=== PATIENT | female | born 1985 | race Caucasian/White ===

== ENCOUNTER 2017-02-21 17:03 | Emergency (ER) | payer MEDICAID, OTHER ==
[~2017-02-21] VITALS: Ht 152.4 cm; Wt 66.0 kg
[2017-02-21 17:05] VITALS: BP 150/88; PULSE 84; RESP 16; TEMP 97.7; O2SAT 99
--- NOTE | 2017-02-21 17:08 | PD ---
Physical Exam Date Seen by Provider: Feb 21, 2017 Time Seen by Provider: 17:06 Data Data Last Documented VS Vital Signs Date Time Temp Pulse Resp B/P Pulse Ox O2 Delivery O2 Flow Rate FiO2 02/21/17 17:05 97.7 84 16 150/88 99 Room Air [facility] Supervised Visit with NUNU: No Narrative Course 31 YO F with complaint of 1 day history of 7/10 abdominal pain and vaginal bleeding during . LMP December. Vitals reviewed. Awaiting bed placement. Isabel Quevedo Feb 21, 2017 17:08
--- NOTE | 2017-02-21 17:32 | PD ---
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 She reports that her last menstrual period was December 17. She took a home test about a month ago and was positive. 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 She reports that she had some pelvic cramping yesterday which is more mild. She reports that for the past 30 minutes she has been having some vaginal bleeding, worsening pelvic cramping which prompted evaluation. No alleviating factors. Or abrasions occasional nausea. Endorses dark colored urine. Denies dysuria, increased urine frequency or hesitancy, flank pain, fevers or chills. She does not know her Rh type. No other complaints. PFSH Past Medical History ?: LMP: December Social History Alcohol Use: No Tobacco Use: Yes Allergies-Medications (Allergen,Severity, Reaction): Coded Allergies: No Known Allergies (Unverified , 02/21/17) Reported Meds & Prescriptions Reported Meds & Active Scripts Active Macrobid (Nitrofurantoin Monohydrate Macrocrystals) 100 Mg Capsule 100 Mg PO BID 7 Days Review of Systems Except as stated in HPI: all other systems reviewed are Neg Physical Exam Narrative GENERAL: Well-developed well-nourished female in no acute distress SKIN: Warm and dry. HEAD: Atraumatic. Normocephalic. EYES: Pupils equal and round. No scleral icterus. No injection or drainage. ENT: No nasal bleeding or discharge. Mucous membranes pink and moist. NECK: Trachea midline. No JVD. CARDIOVASCULAR: Regular rate and rhythm. No murmur appreciated. RESPIRATORY: No accessory muscle use. Clear to auscultation. Breath sounds equal bilaterally. GASTROINTESTINAL: Abdomen soft, non-tender, nondistended. Hepatic and splenic margins not palpable. Pelvic examination performed in the presence of a female nurse: There is some blood noted in the vaginal canal. There is no cervical motion tenderness or adnexal tenderness. There is mild suprapubic tenderness to palpation without guarding. No palpable masses. Normal external genitalia. MUSCULOSKELETAL: No obvious deformities. No clubbing. No cyanosis. No edema. NEUROLOGICAL: Awake and alert. No obvious cranial nerve deficits. Motor grossly within normal limits. Normal speech. PSYCHIATRIC: Appropriate mood and affect; insight and judgment normal. Data Data Last Documented VS Vital Signs Date Time Temp Pulse Resp B/P Pulse Ox O2 Delivery O2 Flow Rate FiO2 02/21/17 17:05 97.7 84 16 150/88 99 Room Air Orders Beta Hcg (Quant/Titer) (02/21/17 17:25) Urinalysis - C+S If Indicated (02/21/17 17:25) Iv Access Insert/Monitor (02/21/17 17:25) Ed Urine Pregnancytest Poc (02/21/17 17:25) Gc And Chlamydia Pcr (02/21/17 18:10) Wet Prep Profile (02/21/17 18:10) Urine Culture (02/21/17 18:45) Nitrofurantoin Monohyd Macrocr (Macrobid (02/21/17 18:45) Labs Laboratory Tests Test 02/21/17 02/21/17 02/21/17 17:28 17:37 18:19 Urine Color YELLOW Urine Turbidity HAZY Urine pH 6.0 Urine Specific [place] 1.028 Urine Protein 30 mg/dL Urine Glucose (UA) NEG mg/dL Urine Ketones 10 mg/dL Urine Occult Blood MOD Urine Nitrite POS Urine Bilirubin NEG Urine Urobilinogen LESS THAN 2.0 MG/DL Urine Leukocyte Esterase MOD Human Chorionic Gonadotropin, LESS THAN 1 Quant MIU/ML Clue Cells (Wet Prep) NONE SEEN Vaginal Trichomonas (Wet Prep) NONE SEEN Vaginal Yeast (Wet Prep) NONE SEEN MDM Medical Decision Making Medical Screen Exam Complete: Yes Emergency Medical Condition: Yes Medical Record Reviewed: Yes Differential Diagnosis Threatened , complete , menstruation, cystitis, pelvic inflammatory disease, cervicitis Narrative Course 31-year-old female who believes that her last menstrual period was December 17, reportedly a positive home test sometime last month, presents now with less than 1 hour of mild pelvic cramping and vaginal bleeding. She has noted some dark colored urination as well. Physical examination reveals some blood in the vaginal canal, mild superpubic discomfort with palpation. There is no cervical motion tenderness or adnexal tenderness, no palpable masses. 2 urine tests were performed and they were both negative. Therefore quantitative beta hCG was sent and this is less than 1. The patient is not . She is likely experiencing menstruation. Urinalysis however reveals positive nitrites, 20-24 wbc's, many bacteria, therefore urine culture has been ordered and the patient will be discharged on Macrobid. Diagnosis Primary Impression: Late menstruation Additional Impression: Cystitis Additional Instructions: Antibiotic as prescribed. Follow-up with primary care physician as needed. Return for any acutely new or worsening symptoms. Med/Other Pt SpecificInfo: Prescription(s) given Scripts Nitrofurantoin Monohydrate Macrocrystals (Macrobid)100 Mg [id number] Mg PO BID 7 Days Ref 0 Prov:Shruti Lloyd MD 02/21/17 Disposition: 01 DISCHARGE HOME Condition: Stable Wilner Zuniga Feb 21, 2017 17:32
[2017-02-21 18:28] LABS: BLOOD, URINE MOD (NEG); GLUCOSE,URINE NEG (NEG); KETONE, URINE 10 mg/dL (NEG); URINE COLOR YELLOW (YELLW/STRAW)
[2017-02-21 18:33] LABS: BETA HCG QUANT LESS THAN 1 MIU/ML (0-5)
[2017-02-21 18:34] LABS: NITRITE,URINE POS (NEG)
[2017-02-21] MEDS ORDERED: NITROFURANTOIN MONOHYD MACROCR 100 MG CAP PO ONE (18:45)
[2017-02-21] MEDS ORDERED: MACR100C2 PO (18:46)
[2017-02-21 18:49] LABS: BACTERIA, URINE MANY /hpf; CULTURE IF INDICATED CULTURE INDICATED; SQUAMOUS EPITHELIAL CELL URINE > 8 /hpf (0-5)
[2017-02-21 18:55] LABS: COMMENT (UR) CULTURE INDICATED; COMMENT2 (UR) CULTURE INDICATED
[2017-02-21 19:31] VITALS: BP 142/87
[2017-02-21 21:10] LABS: CHLAMYDIA PCR NOT DETECTED (NOT DETECT); NEISSERIA PCR NOT DETECTED (NOT DETECT)
== END 2017-02-21 19:36 | disposition home or self-care (01) ==
LOC: NEPD 17:03
DX: R10.2 Pelvic and perineal pain (principal); N30.90 Cystitis, unspecified without hematuria; B96.20 Unspecified Escherichia coli [E. coli] as the cause of diseases classified elsewhere; Z87.891 Personal history of nicotine dependence
CPT/HCPCS: 81001; 84702; 84703; 87077; 87086; 87186; 87210; 87491; 87591; 99284

== ENCOUNTER 2017-08-30 20:27 | Emergency (ER) | payer MEDICAID ==
[~2017-08-30 20:27] MED LIST: MACR100C2 PO
[2017-08-30 20:28] VITALS: BP 156/124; PULSE 85; RESP 16; TEMP 99.2; O2SAT 97
[2017-08-30 21:05] LABS: AUTOMATED NEUTROPHIL # 6.5 TH/MM3 (1.8-7.7); BASOPHIL # 0.1 TH/MM3 (0-0.2); BASOPHIL % 0.7 % (0.0-2.0); EOSINOPHIL # 0.2 TH/MM3 (0-0.4); EOSINOPHIL % 1.8 % (0.0-4.0); HEMATOCRIT 38.8 % (35.0-46.0); HEMO FLAGS DIFF FINAL; LYMPHOCYTE # 2.4 TH/MM3 (1.0-4.8); MEAN CELL VOLUME 90.2 FL (80.0-100.0); MEAN CORPUSCULAR HGB CONC 34.4 % (32.0-36.0); MONO % 4.3 % (0.0-8.0); NEUT % 68.2 % (16.0-70.0); PLATELET COUNT 154 TH/MM3 (150-450); RED CELL DISTRIBUTION WIDTH 13.2 % (11.6-17.2); WHITE BLOOD COUNT 9.5 TH/MM3 (4.0-11.0)
[2017-08-30 21:13] LABS: BLOOD, URINE LARGE (NEG); COMMENT (UR) CULT NOT INDICATED; CULTURE IF INDICATED CULT NOT INDICATED; GLUCOSE,URINE NEG (NEG); KETONE, URINE NEG (NEG); MUCUS URINE MOD /lpf (OCC); NITRITE,URINE NEG (NEG); SQUAMOUS EPITHELIAL CELL URINE 9 /hpf (0-5); URINE COLOR YELLOW (YELLW/STRAW)
[2017-08-30 21:23] LABS: ANION GAP 6 MEQ/L (5-15); AST (GOT) 9 U/L (15-37); BICARBONATE 28.2 MEQ/L (21.0-32.0); BLOOD UREA NITROGEN 19 MG/DL (7-18); CHLORIDE 104 MEQ/L (98-107); GLOMERULAR FILTRATION RATE 90 ML/MIN (>89); POTASSIUM 3.6 MEQ/L (3.5-5.1); SODIUM (NA) 138 MEQ/L (136-145)
[2017-08-30 21:24] LABS: ALT (GPT) 17 U/L (10-53)
[2017-08-30 21:26] LABS: ALKALINE PHOSPHATASE 54 U/L (45-117); TOTAL BILIRUBIN ADULT 0.3 MG/DL (0.2-1.0)
[2017-08-30] MEDS ORDERED: SODIUM CHLOR 0.9% 1000 ML INJ 1,000 ML IV ONE (21:48)
--- NOTE | 2017-08-30 22:03 | PD ---
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 She reports that the bleeding seems to come and go and worsens with activity or urination. The patient reports that she has had associated urinary frequency, however no dysuria or urinary urgency. She reports that she did not have her menstrual cycle in July. She has not taken a test. She reports that she is a . Her OB history is significant for having 1 miscarriage, 1 due to hypertension in , and 2 vaginal deliveries. The patient reports that she's had increased pain in the left lower quadrant of the abdomen with this vaginal bleeding. On review of systems, the patient denies having any known fevers, cough, congestion, neck pain, chest pain, shortness of breath, vomiting, diarrhea, or neurologic symptoms. [facility] Past Medical History Narrative Medical The patient's past medical history is significant for depression. Tetanus Vaccination: Unknown Influenza Vaccination: No ?: LMP: june one : 4 Para: 3 Miscarriage: 1 Past Surgical History Narrative Surgical The patient's past surgical history is significant for one and a tonsillectomy Section: Yes Tonsillectomy: Yes Social History Alcohol Use: No Tobacco Use: Yes Substance Use: Yes (marijuana occasional ) Allergies-Medications (Allergen,Severity, Reaction): Coded Allergies: No Known Allergies (Unverified , 02/21/17) Reported Meds & Prescriptions Reported Meds & Active Scripts Active Clindamycin (Clindamycin HCl) 300 Mg Cap 300 Mg PO BID 7 Days Macrobid (Nitrofurantoin Monohydrate Macrocrystals) 100 Mg Capsule 100 Mg PO BID 7 Days Review of Systems Except as stated in HPI: all other systems reviewed are Neg General / Constitutional: No: Fever Eyes: No: Visual changes HENT: No: Headaches Cardiovascular: No: Chest Pain or Discomfort Respiratory: No: Shortness of Breath Gastrointestinal: Positive: Abdominal Pain, No: Nausea, Vomiting, Diarrhea, Changes in Bowel Habits, Indigestion, Loss of Appetite Genitourinary: Positive: Frequency, Pelvic Pain, Vaginal Bleeding, No: Urgency , Dysuria, Discharge Musculoskeletal: No: Pain Skin: No Rash Neurologic: No: Weakness, Focal Abnormalities, Coordination Problem, Change in Mentation, Slurred Speech, Sensory Disturbance Psychiatric: No: Depression Endocrine: No: Polydipsia Hematologic/Lymphatic: No: Easy Bruising Physical Exam Narrative General: The patient is a well-developed well-nourished female in no acute distress. Head and Neck exam: Head is normocephalic atraumatic. Eyes: Pupils are equal round and reactive to light. Nose: Midline septum with pink mucous membranes Mouth: Dentition unremarkable. Moist mucus membranes. Posterior oropharynx is not erythematous. No tonsillar hypertrophy. Uvula midline. Airway patent. Neck: No palpable lymphadenopathy. No nuchal rigidity. No thyromegaly. Cardiovascular: Regular rate and rhythm without murmurs, gallops, or rubs. Lungs: Clear to auscultation bilaterally. No wheezes, rhonchi, or rales. Abdomen: Soft, with tenderness on palpation in the left lower quadrant of the abdomen, no other tenderness on palpation of the other quadrants. No guarding, rebound, or rigidity. Normal bowel sounds are audible. No tenderness on palpation of McBurney's point. Extremities: No clubbing, cyanosis, or edema. 2+ pulses in all 4 extremities. No calf tenderness on palpation. Back: The patient has right-sided CVA tenderness on palpation. No other tenderness on palpation of the left CVA. Neurologic Exam: Grossly nonfocal. Skin Exam: No rash noted. Intact skin that is warm and dry. Gynecologic exam: The patient was placed in the dorsal lithotomy position. Her external genitalia were examined. She had no evidence of rash or lesions. The speculum was placed into her vagina and the cervix was identified. She had a mild amount of vaginal bleeding noted. No cervical friability. On Bimanual exam: s cervical os was closed. He has no cervical motion tenderness. The patient has left adnexal tenderness on palpation. The patient has bladder tenderness on bimanual examination. The patient has no palpable uterine enlargement or uterine tenderness on palpation. Data Data Last Documented VS Vital Signs Date Time Temp Pulse Resp B/P (MAP) Pulse Ox O2 Delivery O2 Flow Rate FiO2 08/31/17 00:07 08/30/17 20:28 99.2 85 16 97 Room Air Orders Orders Complete Blood Count With Diff (08/30/17 20:34) Comprehensive Metabolic Panel (08/30/17 20:34) Urinalysis - C+S If Indicated (08/30/17 20:34) Ed Urine Pregnancytest Poc (08/30/17 20:34) Gc And Chlamydia Pcr (08/30/17 21:48) Complete Rh (08/30/17 21:48) Us Pelvis (Ques Pr/Ect)W Trans (08/30/17 ) Wet Prep Profile (08/30/17 21:48) Iv Access Insert/Monitor (08/30/17 21:48) Ecg Monitoring (08/30/17 21:48) Sodium Chlor 0.9% 1000 Ml Inj (Ns 1000 M (08/30/17 21:48) Beta Hcg (Quant/Titer) (08/30/17 20:40) Ed Poc Ultrasound (08/30/17 ) Ed Discharge Order (08/31/17 00:21) Labs Laboratory Tests Test 08/30/17 20:39 08/30/17 20:40 08/30/17 22:00 Urine Color YELLOW Urine Turbidity HAZY Urine pH 6.0 Urine Specific [place] 1.032 Urine Protein TRACE mg/dL Urine Glucose (UA) NEG mg/dL Urine Ketones NEG mg/dL Urine Occult Blood LARGE Urine Nitrite NEG Urine Bilirubin NEG Urine Urobilinogen 2.0 MG/DL Urine Leukocyte Esterase MOD Urine RBC 13 /hpf Urine WBC 2 /hpf Urine Squamous Epithelial Cells 9 /hpf Urine Amorphous Sediment RARE Urine Mucus MOD /lpf Microscopic Urinalysis Comment CULT NOT INDICATED White Blood Count 9.5 TH/MM3 Red Blood Count 4.30 MIL/MM3 Hemoglobin 13.3 GM/DL Hematocrit 38.8 % Mean Corpuscular Volume 90.2 FL Mean Corpuscular Hemoglobin 31.0 PG Mean Corpuscular Hemoglobin Concent 34.4 % Red Cell Distribution Width 13.2 % Platelet Count 154 TH/MM3 Mean Platelet Volume 10.4 FL Neutrophils (%) (Auto) 68.2 % Lymphocytes (%) (Auto) 25.0 % Monocytes (%) (Auto) 4.3 % Eosinophils (%) (Auto) 1.8 % Basophils (%) (Auto) 0.7 % Neutrophils # (Auto) 6.5 TH/MM3 Lymphocytes # (Auto) 2.4 TH/MM3 Monocytes # (Auto) 0.4 TH/MM3 Eosinophils # (Auto) 0.2 TH/MM3 Basophils # (Auto) 0.1 TH/MM3 CBC Comment DIFF FINAL Differential Comment Blood Urea Nitrogen 19 MG/DL Creatinine 0.74 MG/DL Random Glucose 100 MG/DL Total Protein 7.5 GM/DL Albumin 4.2 GM/DL Calcium Level 8.6 MG/DL Alkaline Phosphatase 54 U/L Aspartate Amino Transf (AST/SGOT) 9 U/L Alanine Aminotransferase (ALT/SGPT) 17 U/L Total Bilirubin 0.3 MG/DL Sodium Level 138 MEQ/L Potassium Level 3.6 MEQ/L Chloride Level 104 MEQ/L Carbon Dioxide Level 28.2 MEQ/L Anion Gap 6 MEQ/L Estimat Glomerular Filtration Rate 90 ML/MIN Human Chorionic Gonadotropin, Quant 864 MIU/ML Clue Cells (Wet Prep) NONE SEEN Vaginal Trichomonas (Wet Prep) PRESENT Vaginal Yeast (Wet Prep) NONE SEEN Chlamydia trachomatis DNA (PCR) NOT DETECTED Neisseria gonorrhoeae DNA (PCR) NOT DETECTED MDM Medical Decision Making Medical Screen Exam Complete: Yes Emergency Medical Condition: Yes Medical Record Reviewed: Yes Interpretation(s) Last Impressions Pelvis Ultrasound 08/30/17 0000 Signed Impressions: Service Date/Time: Wednesday, August 30, 2017 22:25 - CONCLUSION: 1. An intrauterine is not demonstrated. 2. No free fluid. Matias Forman MD Differential Diagnosis Threatened miscarriage, versus ectopic , versus dysfunctional uterine bleeding Narrative Course During the course of the patients emergency department visit, the patients history, examination, and differential diagnosis were reviewed with the patient. The patient was placed on a dosier operator with oximetry and frequent blood pressure monitoring. The patient had IV access obtained and blood work sent for analysis. A bedside test was positive. An Rh was added to the patient's evaluation as well as a quantitative beta hCG and an ultrasound was done by me at the bedside. The bedside ultrasound reveals an endometrial stripe that appear to be thickened without any evidence of intrauterine . A formal ultrasound transvaginal route was ordered. The patient was initially provided normal saline 1 L IV fluid bolus. The patients laboratory studies were reviewed and remarkable for a CBC that is within normal limits, CMP is remarkable for a BUN of 19, AST and 9, quantitative beta hCG 864, urinalysis shows large occult blood, moderate leukocyte esterase, 13 RBCs 9 squamous epithelial cells on a culture not indicated. Wet prep was positive for trichomoniasis Radiology studies were reviewed and remarkable for a transvaginal ultrasound reveals no evidence of intrauterine , no free fluid, no adnexal or ovarian abnormality. A call was placed out to Dr. Lopez, the corn husk baler on-call. My equal opportunity officer spoke to Dr. Lopez who recommended that instead of speaking to her I speak to the OB ED hospitalist. I then spoke to Dr. Haas regarding this patient's case. He did agree that the patient could follow-up as an outpatient regarding this. He did not know what corn husk baler the patient should follow up with as an outpatient. He recommended that the patient reported back to the emergency department in 2 days for repeat quantitative beta hCG. The patient is instructed on bed rest and pelvic rest. The patient is resting comfortably and feels better, is alert and in no distress. The patients results and examination findings were discussed with the patient. The repeat examination is unremarkable and benign. The history, exam, diagnostic testing, and current condition do not suggest any significant pathology to warrant further testing, continued ED treatment, admission, or surgical evaluation at this point. The vital signs have been stable. The patient does not have uncontrollable pain, intractable vomiting, or other significant symptoms. The patient's condition is stable and appropriate for discharge. The patient will pursue further outpatient evaluation with a primary care physician or other designated or consulting physician as indicated in the discharge instructions. The patient expressed understanding and was agreeable with this plan. Procedures Procedure Narrative Emergency Department Pelvic ultrasound was performed with patient consent. The curvilinear probe was used in the transverse and longitudinal views within the suprapubic region revealing no evidence of an intrauterine , however the endometrial stripe does appear to be thickened and the uterus appears enlarged. Physician Communication Physician Communication The patient's case including history, pertinent physical examination findings, and laboratory studies were discussed with Dr. Haas, the OB ED hospitalist. Diagnosis Primary Impression: Threatened miscarriage Additional Impression: Trichomoniasis Referrals: [facility] Compounder 2 days Patient Instructions: General Instructions, Threatened Miscarriage (ED), Trichomoniasis (ED) Departure Forms: Tests/Procedures, Work Release Enter return to work date: Sep 07, 2017 Additional Instructions: The patient is instructed to follow back up in the emergency department in 2 days for repeat quantitative beta hCG. She is also given an outpatient lab slip to obtain this in case she would like to follow-up with a corn husk baler her choosing. The patient is instructed regarding the importance of bed rest and pelvic rest. The patient was instructed to have her partner treated for trichomoniasis. Med/Other Pt SpecificInfo: Prescription(s) given Scripts Clindamycin (Clindamycin) 300 Mg Cap 300 MG PO BID for Infection for 7 Days, #14 CAP 0 Refills Prov: Farheen Houston MD 08/30/17 Disposition: 01 DISCHARGE HOME Condition: Stable Farheen Houston MD Aug 30, 2017 22:03
[2017-08-30 22:31] LABS: BETA HCG QUANT 864 MIU/ML (0-5)
--- NOTE | 2017-08-30 23:16 | RADRPT ---
EXAM DATE/TIME: 08/30/2017 22:25 [place] COMPARISON: No previous studies available for comparison. INDICATIONS : Bleeding with . LAB(S): Beta-hC MEDICAL HISTORY : . Miscarriage x1. SURGICAL HISTORY : Tonsillectomy. section. ENCOUNTER: Initial ACUITY: 1 day PAIN SCORE: 4/10 LOCATION: Bilateral pelvis MEASUREMENTS: UTERUS: 11.0 x 6.9 x 5.2 cm ENDOMETRIAL STRIPE: 7 mm RIGHT OVARY: 3.9 x 3.0 x 1.8 cm LEFT OVARY: 3.4 x 2.5 x 2.0 cm FINDINGS: UTERUS: The myometrium has homogeneous echotexture without mass. Normal echotexture to the endometrium; no ge stational sac or focal cystic area seen. RIGHT OVARY: Ovary contains no mass or significant cystic lesion. LEFT OVARY: Ovary contains no mass or significant cystic lesion. MISCELLANEOUS: No free fluid. CONCLUSION: 1. An intrauterine is not demonstrated. 2. No free fluid. Matias Forman MD on August 30, 2017 at 23:11 Board Certified Radiologist. This report was verified electronically.
[2017-08-30] MEDS ORDERED: CLIN300C5 PO (23:49)
[2017-08-31 00:33] LABS: CHLAMYDIA PCR NOT DETECTED (NOT DETECT); NEISSERIA PCR NOT DETECTED (NOT DETECT)
== END 2017-08-31 00:15 | disposition home or self-care (01) ==
LOC: NEPE 20:27
DX: O20.0 Threatened abortion (principal); O98.319 Other infections with a predominantly sexual mode of transmission complicating pregnancy, unspecified trimester; A59.01 Trichomonal vulvovaginitis; Z3A.00 Weeks of gestation of pregnancy not specified
CPT/HCPCS: 76700; 76817; 80053; 81001; 84702; 84703; 85025; 86901; 87210; 87491; 87591; 96360; 96361; 99285; J7030

== ENCOUNTER 2017-09-02 08:24 | Emergency (ER) | payer MEDICAID ==
[~2017-09-02 08:24] MED LIST changes: +CLIN300C5 PO
[2017-09-02 08:26] VITALS: BP 164/92; PULSE 89; RESP 17; TEMP 99.5; O2SAT 100
--- NOTE | 2017-09-02 09:34 | PD ---
HPI Chief Complaint: Medical Clearance Time Seen by Provider: 09:15 Travel History International Travel<30 days: No Contact w/Intl Traveler<30days: No Traveled to known affect area: No History of Present Illness HPI 31-year-old female presents to emergency department for follow-up of hCG that was elevated 2 days ago. Patient states that she also had associated abdominal cramping and continues to have some mild cramping with vaginal bleeding. Patient denies fever, chills, shortness of breath, chest pain. States her bowel movements have been normal for her. Denies dysuria or other urinary symptoms. PFSH Past Medical History ?: : 4 Para: 3 Miscarriage: 1 Past Surgical History Section: Yes Tonsillectomy: Yes Social History Alcohol Use: No Tobacco Use: Yes Substance Use: Yes (marijuana occasional ) Allergies-Medications (Allergen,Severity, Reaction): Coded Allergies: No Known Allergies (Unverified , 02/21/17) Reported Meds & Prescriptions Reported Meds & Active Scripts Active Clindamycin (Clindamycin HCl) 300 Mg Cap 300 Mg PO BID 7 Days Macrobid (Nitrofurantoin Monohydrate Macrocrystals) 100 Mg Capsule 100 Mg PO BID 7 Days Review of Systems Except as stated in HPI: all other systems reviewed are Neg Physical Exam Narrative GENERAL: Well-nourished, well-developed patient. SKIN: Focused skin assessment warm/dry. HEAD: Normocephalic. EYES: No scleral icterus. No injection or drainage. CARDIOVASCULAR: Regular rate and rhythm without murmurs, gallops, or rubs. RESPIRATORY: Breath sounds equal bilaterally. No accessory muscle use. GASTROINTESTINAL: Abdomen soft, mildly tender, nondistended MUSCULOSKELETAL: No cyanosis, or edema. BACK: Nontender without obvious deformity. No CVA tenderness. Data Data Last Documented VS Vital Signs Date Time Temp Pulse Resp B/P (MAP) Pulse Ox O2 Delivery O2 Flow Rate FiO2 09/02/17 10:00 09/02/17 08:26 99.5 89 17 100 Room Air Orders Orders Beta Hcg (Quant/Titer) (09/02/17 08:28) Ed Discharge Order (09/02/17 09:35) Labs Laboratory Tests Test 09/02/17 08:33 Human Chorionic Gonadotropin, Quant 497 MIU/ML [facility] Medical Decision Making Medical Screen Exam Complete: Yes Emergency Medical Condition: Yes Differential Diagnosis Missed , threatened , status, menorrhagia Narrative Course 31-year-old female presents to emergency department for follow-up of hCG that was elevated 2 days ago. Patient states that she also had associated abdominal cramping and continues to have some mild cramping with vaginal bleeding. Patient denies fever, chills, shortness of breath, chest pain. States her bowel movements have been normal for her. Denies dysuria or other urinary symptoms. Vital signs stable. Physical exam unremarkable I strongly advised patient follow-up with a service station attendant or ethylbenzene cracking supervisor before attempting to conceive again. Advised patient follow up with service station attendant for vaginal bleeding. Advised patient that she may bleed for several weeks, up to 6 weeks. Advised patient that if her symptoms worsen or persists return to the emergency department. Patient understands and will comply. Diagnosis Primary Impression: Missed Referrals: Lone Lead Lineman Additional Instructions: Follow-up with a service station attendant and/or primary care physician within 2-3 days. Continue Tylenol for cramping. If your symptoms persist or worsen return to the emergency department. Disposition: 01 DISCHARGE HOME Condition: Stable Lillian Flowers Sep 02, 2017 09:34
== END 2017-09-02 10:01 | disposition home or self-care (01) ==
LOC: NEPD 08:24
DX: O02.1 Missed abortion (principal); Z72.0 Tobacco use; Z3A.00 Weeks of gestation of pregnancy not specified
CPT/HCPCS: 84702; 99282

== ENCOUNTER 2017-12-01 22:33 | Emergency (ER) | payer MEDICAID ==
[~2017-12-01] VITALS: Ht 152.4 cm; Wt 65.0 kg
[2017-12-01 23:22] VITALS: BP 124/65; PULSE 85; RESP 16; TEMP 98.7; O2SAT 98
--- NOTE | 2017-12-02 00:11 | PD ---
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 Patient reports that she had a miscarriage in July of last year and is concerned about possibly having another miscarriage. She denies vaginal discharge or bleeding. She has not yet had an ultrasound to confirm an IUP and has not yet been seen by an [facility] physician. Epigastric pain described as cramps, intermittent, started today. She also complains of sharp intravaginal pains that started today. No history of abdominal surgeries. No fevers or chills. No urinary symptoms. PFSH Past Medical History Depression: Yes ?: : 5 Para: 3 Miscarriage: 2 Past Surgical History Section: Yes Tonsillectomy: Yes ("AND ADENOIDS") Social History Alcohol Use: No Tobacco Use: Yes (/2 PPD) Substance Use: No Allergies-Medications (Allergen,Severity, Reaction): Coded Allergies: No Known Allergies (Unverified Adverse Reaction, Unknown, 12/01/17) Reported Meds & Prescriptions Reported Meds & Active Scripts Active Clindamycin (Clindamycin HCl) 300 Mg Cap 300 Mg PO BID 7 Days Macrobid (Nitrofurantoin Monohydrate Macrocrystals) 100 Mg Capsule 100 Mg PO BID 7 Days Review of Systems Except as stated in HPI: all other systems reviewed are Neg Physical Exam Narrative GENERAL: Well-developed, well-nourished, comfortable, no apparent distress. SKIN: Focused skin assessment warm/dry. HEAD: Atraumatic. Normocephalic. EYES: Pupils equal and round. No scleral icterus. No injection or drainage. ENT: Mucous membranes pink and moist. NECK: Trachea midline. No JVD. CARDIOVASCULAR: Regular rate and rhythm. RESPIRATORY: No accessory muscle use. Clear to auscultation. Breath sounds equal bilaterally. GASTROINTESTINAL: Abdomen soft, nondistended. Mild epigastric tenderness without peritoneal signs. Normal bowel sounds. No hernias. 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 Normal external genitalia. Scant/physiologic vaginal discharge. No vaginal bleeding. Cervical loss is normal in appearance and closed. MUSCULOSKELETAL: No obvious deformities. No clubbing. No cyanosis. No edema. NEUROLOGICAL: Awake and alert. No obvious cranial nerve deficits. Motor grossly within normal limits. Normal speech. PSYCHIATRIC: Appropriate mood and affect; insight and judgment normal. Data Data Last Documented VS Vital Signs Date Time Temp Pulse Resp B/P (MAP) Pulse Ox O2 Delivery O2 Flow Rate FiO2 12/01/17 23:22 98.7 85 16 124/65 (84) 98 Orders Orders Urinalysis - C+S If Indicated (12/01/17 23:58) Gc And Chlamydia Pcr (12/01/17 23:58) Wet Prep Profile (12/01/17 23:58) Labs Laboratory Tests Test 12/02/17 00:25 Urine Color YELLOW Urine Turbidity CLEAR Urine pH 6.5 Urine Specific [place] 1.028 Urine Protein TRACE mg/dL Urine Glucose (UA) NEG mg/dL Urine Ketones TRACE mg/dL Urine Occult Blood NEG Urine Nitrite NEG Urine Bilirubin NEG Urine Urobilinogen 2.0 MG/DL Urine Leukocyte Esterase TRACE Urine RBC 7 /hpf Urine WBC 2 /hpf Urine Squamous Epithelial Cells 3 /hpf Urine Bacteria RARE /hpf Urine Mucus FEW /lpf Microscopic Urinalysis Comment CULT NOT INDICATED Clue Cells (Wet Prep) PRESENT Vaginal Trichomonas (Wet Prep) NONE SEEN Vaginal Yeast (Wet Prep) NONE SEEN MDM Medical Decision Making Medical Screen Exam Complete: Yes Emergency Medical Condition: Yes Differential Diagnosis , ectopic , UTI, cystitis, bacterial vaginosis, PID, cholelithiasis Narrative Course Bedside transabdominal ultrasound was performed by me and shows a well- developed IUP with a heart rate of 174 bpm. Vital signs show heart rate 85, blood pressure 124/65, pulse ox 98% on room air , oral temperature 98.7F. UA: Trace ketones, trace leukocyte esterase, 7 RBCs, 2 WBCs, rare bacteria, few mucus. Wet prep is positive for clue cells. Patient was made aware of all findings. She is overall very well-appearing and her abdominal exam is relatively benign. I do not believe that there is an acute intra-abdominal/surgical process. She will be started on Flagyl for bacterial vaginosis as well as Macrobid for bacteriuria in . She is in the process of scheduling an appointment with an [facility] physician, however has had insurance issues with this process. She has been taking vitamins. She is stable for discharge home with outpatient follow-up with an OB /MILLROOM SUPERVISOR physician this week. She was advised on when to return to the emergency department. She verbalizes understanding and agreement with plan. 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 Take antibiotics as prescribed. Return to the emergency department for worsening symptoms or any other concerns. Scripts Nitrofurantoin Monohydrate Macrocrystals (Macrobid) 100 Mg Cap 100 MG PO BID for Infection for 5 Days, #10 CAP 0 Refills Prov: Roosevelt Garcia MD 12/02/17 Metronidazole (Flagyl) 500 Mg Tab 500 MG PO BID for Infection for 7 Days, #14 TAB 0 Refills Prov: Roosevelt Garcia MD 12/02/17 Disposition: 01 DISCHARGE HOME Condition: Stable Roosevelt Garcia MD Dec 02, 2017 00:11
[2017-12-02 00:42] LABS: BACTERIA, URINE RARE /hpf; BILIRUBIN, URINE NEG (NEG); BLOOD, URINE NEG (NEG); GLUCOSE,URINE NEG (NEG); KETONE, URINE TRACE mg/dL (NEG); MUCUS URINE FEW /lpf (OCC); NITRITE,URINE NEG (NEG); PH, URINE 6.5 (5.0-8.5); SQUAMOUS EPITHELIAL CELL URINE 3 /hpf (0-5); URINE COLOR YELLOW (YELLW/STRAW); URINE LEUKOCYTE ESTERASE TRACE (NEG)
[2017-12-02] MEDS ORDERED: METR-1 PO (00:53)
[2017-12-02] MEDS ORDERED: MACR100C2 PO (00:53)
[2017-12-02] MEDS ORDERED: metroNIDAZOLE 500 MG TAB PO ONE (01:00)
[2017-12-02] MEDS ORDERED: NITROFURANTOIN MONOHYD MACROCR 100 MG CAP PO ONE (01:00)
== END 2017-12-02 01:09 | disposition home or self-care (01) ==
LOC: NEPD 22:33
DX: O23.591 Infection of other part of genital tract in pregnancy, first trimester (principal); N76.0 Acute vaginitis; R82.71 Bacteriuria; O99.331 Smoking (tobacco) complicating pregnancy, first trimester; F17.210 Nicotine dependence, cigarettes, uncomplicated; Z3A.01 Less than 8 weeks gestation of pregnancy
CPT/HCPCS: 81001; 87210; 87491; 87591; 99283

== ENCOUNTER → 2018-02-25 | Outpatient (CLI) | payer MEDICAID ==
[~2018-02-25] MED LIST changes: +METR-1 PO
== END ==
LOC: HPND 09:07
PROVIDERS: ATTEND Obstetrics & Gynecology
DX: O34.211 Maternal care for low transverse scar from previous cesarean delivery (principal); Z36.3 Encounter for antenatal screening for malformations
CPT/HCPCS: 76805

== ENCOUNTER 2018-05-17 18:35 | Observation (INO) ==
--- NOTE | 2018-05-17 19:20 | ED ---
History of Present Illness Primary Care Physician: No Primary Care Physician History of Present Illness: Chief complaint: Elevated 24-hour urine 32-year-old , IUP at 35.1 care complicated by history of preeclampsia, history of prior delivery followed by x2, tobacco use, history of headaches The patient presents from home reporting that Dr. Avalos advised her to come to the hospital because of an elevated 24-hour urine total protein. She reports that her blood pressure was elevated in the office at 140/83 on . She was discharged home with a 24-hour urine collection which she turned in on 05/13/18. She reports that she was called by Dr. Avalos today. She reports an intermittent headache. She reports that she has a headache today that did not resolve with Tylenol. There are no aggravating factors and no other attempted treatments. She denies any visual changes, right upper quadrant or epigastric pain. She denies any leaking of fluid or vaginal bleeding. She reports good movement. She denies any painful contractions or cramping. She has no other obstetrical complaints today. 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 x2 PMH: History of preeclampsia with first FH: Denies PSH: delivery, TNA SH: Tobacco use Meds/allergies: As per EMR Review of Systems All other systems reviewed negative except as stated in HPI PMFSH - Travel History Recent Travel in the [facility] Within the Last 8 Weeks: No Recent Travel Out of the Country Within the Last 8 Weeks: No Medications and Allergies Active Medications: Active Medications Sodium Chloride (Ns Flush) 2 ml IV.FLUSH BID EMRE Sodium Chloride (Ns Flush) 2 ml IV.FLUSH PRN PRN PRN Reason: FLUSH AFTER USING IV ACCESS Allergies Allergy/AdvReac Type Severity Reaction Status Date / Time No Known Allergies Allergy Verified 05/17/18 19:00 Home Medications Medication Instructions Recorded Confirmed Type acetaminophen 650 mg PO Q4H PRN 05/17/18 05/17/18 History prenat.vits,steve,[id number] 1 tab PO DAILY 05/17/18 05/17/18 History [ Vitamin] Exam Vital signs: Vital Signs 05/17/18 18:49 05/17/18 19:05 08/28/18 19:07 Temperature 98.9 F Pulse Rate 107 H 106 H Respiratory Rate 16 Blood Pressure 141/88 H 125/99 H Intake & Output 05/17/18 05/17/18 05/18/18 06:59 18:59 06:59 Weight 180 kg Narrative: GENERAL: Well-nourished, well-developed patient. SKIN: Warm and dry. No rashes, masses, lesions noted. HEAD: Normocephalic and atraumatic. EYES: No scleral icterus. No injection or drainage. ENT: No nasal drainage noted. Mucous membranes pink. Airway patent. NECK: Supple, trachea midline. No JVD. CARDIOVASCULAR: Regular rate and rhythm without murmurs, gallops, or rubs. RESPIRATORY: Breath sounds equal bilaterally. No accessory muscle use. BREASTS: Deferred ABDOMEN/GI: Abdomen soft, non-tender, bowel sounds present, no rebound, no guarding Gravid GENITOURINARY: Deferred FHT's: Indications for NST with IUP at 35.1, history of preeclampsia, elevated blood pressure. heart tones are in the 140s with moderate long-term variability, good accelerations, no decelerations noted. This is a reactive NST category 1 heart rate tracing. EXTREMITIES: No cyanosis or edema. BACK: Nontender without obvious deformity. NEUROLOGICAL/psychiatric: Awake and alert. Oriented x3. Grossly normal range of motion. Grossly normal memory/affect. DTR 2+ with no evidence of clonus. Motor and sensory grossly within normal limits. Five out of 5 muscle strength in all muscle groups. Normal speech. Results - Labs CBC & Chem 7: 05/17/18 19:15 05/17/18 19:15 Assessment and Plan - Plan Assessment/plan: 1. IUP at 35.1 2. Elevated blood pressure: History of elevated blood pressure in the office with elevated 24-hour urine protein, Results are not available at this time and the patient is not aware of the results. Will admit for observation overnight with elevated PC ratio 0.37. BP improved with bedrest. Will obtain 24 hour urine total protein results in the morning and observe for resolution of headache as patient has a history of headaches outside of . Discussed management of preeclampsia that typically requires delivery prior to EDC, usually at 37 weeks unless symptoms or other concerns require delivery prior to 37 weeks for preeclampsia with severe features. 3. History of previous delivery followed by x2: discussed that delivery method would ultimately depend on the severity of her disease and comfort level of the attending physician whether she would be offered a conservative induction of labor or delivery. The patient is not interested in bilateral tubal ligation at this time. 4. Tobacco use: Advised to discontinue tobacco use 5. well-being: Reassuring testing with reactive NST and category 1 heart rate tracing 6. Prematurity: will administer betamethasone. Discharge Plan - Discharge Condition Condition: Stable - Physicians Team Primary Care Provider: Primary Jeri Millard Attending Provider: Luz Maria Montano - Rxs /Orders / Referrals /Forms Prescriptions: No Action acetaminophen 325 mg Tablet 650 mg PO Q4H PRN (Reason: Pain) prenat.vits,steve,[id number] [ Vitamin] Tablet 1 tab PO DAILY Referrals: Primary Care Jeri Adkins [Primary Care Provider] - See Instructions
[2018-05-17 20:24] LABS: Bacteria,Urine Occasional /hpf; Bilirubin,Urine Negative (Negative); Clarity,Urine Cloudy (Clear); Color,Urine Amber (Yellw/Straw); Glucose,Urine (UA) Negative (Negative); Leukocyte Esterase,Urine Moderate (Negative); Mucus,Urine Moderate /lpf (Occasional); Nitrite,Urine Negative (Negative); Specific Gravity,Urine 1.031 (1.002-1.035); Squamous Epithelial Cell,Urine 18 /hpf (0-5); Urobilinogen,Urine 4 or Greater mg/dL (Less than 2)
[2018-05-17 20:26] LABS: Hematocrit 35.4 % (35.0-46.0); Hemoglobin 11.7 gm/dL (11.6-15.3); Mean Corpuscular Hemoglobin 29.4 pg (27.0-34.0); Mean Corpuscular Volume 89.1 fL (80.0-100.0); Mean Platelet Volume 10.9 fL (7.0-11.0); Platelet Count 152 th/mm3 (150-450); Red Blood Count 3.97 mil/mm3 (4.00-5.30); White Blood Count 13.1 th/mm3 (4.0-11.0)
[2018-05-17 20:27] LABS: Protein/Creatinine Ratio,Urine 0.37 (0.00-0.14)
[2018-05-17 20:32] LABS: Alanine Aminotransferase 17 U/L (10-53); Anion Gap 13 meq/L (5-15); Aspartate Aminotransferase 18 U/L (15-37); Blood Urea Nitrogen 8 mg/dL (7-18); Calcium 8.2 mg/dL (8.5-10.1); Carbon Dioxide 19.9 meq/L (21.0-32.0); Chloride 106 meq/L (98-107); Glomerular Filtration Rate Greater Than 89 mL/min (>89); Glucose,Random 87 mg/dL (74-106); Potassium 3.8 meq/L (3.5-5.1); Sodium 139 meq/L (136-145)
[2018-05-17 20:35] LABS: Alkaline Phosphatase 165 U/L (45-117); Total Protein 6.8 g/dL (6.4-8.2)
[2018-05-17] MEDS ORDERED: Aluminum/Magnesium/Simethacone Susp 30 ML UDC PO PRN (20:56)
[2018-05-17] MEDS ORDERED: Acetaminophen 325 MG Tablet PO PRN (20:56)
[2018-05-17] MEDS ORDERED: Zolpidem Tartrate 5 MG Tablet PO PRN (20:56)
[2018-05-17] MEDS: Betamethasone Sod Phos/Acetate Inj 30 MG/5 ML Vial IM SCH (21:10)
[2018-05-17] MEDS: Ferrous Sulfate 325 MG Tablet PO SCH (21:10)
--- NOTE | 2018-05-17 22:06 | P.HPOB ---
History of Present Illness Primary Care Physician: No Primary Care Physician History of Present Illness: Patient Name: Zoila Montero Date of : 81 Patient Status: Observation Attending Provider: Luz Maria Montano Date: 05/17/18 19:14 Initialization Date: 05/17/18 19:14 History of Present Illness Primary Care Physician: No Primary Care Physician History of Present Illness: Chief complaint: Elevated 24-hour urine 32-year-old , IUP at 35.1 care complicated by history of preeclampsia, history of prior delivery followed by x2, tobacco use, history of headaches The patient presents from home reporting that Dr. Avalos advised her to come to the hospital because of an elevated 24-hour urine total protein. She reports that her blood pressure was elevated in the office at 140/83 on . She was discharged home with a 24-hour urine collection which she turned in on 05/13/18. She reports that she was called by Dr. Avalos today. She reports an intermittent headache. She reports that she has a headache today that did not resolve with Tylenol. There are no aggravating factors and no other attempted treatments. She denies any visual changes, right upper quadrant or epigastric pain. She denies any leaking of fluid or vaginal bleeding. She reports good movement. She denies any painful contractions or cramping. She has no other obstetrical complaints today. 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 followed by full-term x2 PMH: History of preeclampsia with first FH: Denies PSH: delivery, TNA SH: Tobacco use Meds/allergies: As per EMR Review of Systems All other systems reviewed negative except as stated in HPI PMFSH - Travel History Recent Travel in the [place] Within the Last 8 Weeks: No Recent Travel Out of the Country Within the Last 8 Weeks: No Medications and Allergies Active Medications: Active Medications Sodium Chloride (Ns Flush) 2 ml IV.FLUSH BID EMRE Sodium Chloride (Ns Flush) 2 ml IV.FLUSH PRN PRN PRN Reason: FLUSH AFTER USING IV ACCESS Allergies Allergy/AdvReac Type Severity Reaction Status Date / Time No Known Allergies Allergy Verified 05/17/18 19:00 Home Medications Medication Instructions Recorded Confirmed Type acetaminophen 650 mg PO Q4H PRN 05/17/18 05/17/18 History prenat.vits,steve,yqq-[id number] 1 tab PO DAILY 05/17/18 05/17/18 History [ Vitamin] Exam Vital signs: Vital Signs 05/17/18 18:49 05/17/18 19:05 05/17/18 19:07 Temperature 98.9 F Pulse Rate 107 H 106 H Respiratory Rate 16 Blood Pressure 141/88 H 125/99 H Intake & Output 05/17/18 05/17/18 05/18/18 06:59 18:59 06:59 Weight 180 kg Narrative: GENERAL: Well-nourished, well-developed patient. SKIN: Warm and dry. No rashes, masses, lesions noted. HEAD: Normocephalic and atraumatic. EYES: No scleral icterus. No injection or drainage. ENT: No nasal drainage noted. Mucous membranes pink. Airway patent. NECK: Supple, trachea midline. No JVD. CARDIOVASCULAR: Regular rate and rhythm without murmurs, gallops, or rubs. RESPIRATORY: Breath sounds equal bilaterally. No accessory muscle use. BREASTS: Deferred ABDOMEN/GI: Abdomen soft, non-tender, bowel sounds present, no rebound, no guarding Gravid GENITOURINARY: Deferred FHT's: Indications for NST with IUP at 35.1, history of preeclampsia, elevated blood pressure. heart tones are in the 140s with moderate long-term variability, good accelerations, no decelerations noted. This is a reactive NST category 1 heart rate tracing. EXTREMITIES: No cyanosis or edema. BACK: Nontender without obvious deformity. NEUROLOGICAL/psychiatric: Awake and alert. Oriented x3. Grossly normal range of motion. Grossly normal memory/affect. DTR 2+ with no evidence of clonus. Motor and sensory grossly within normal limits. Five out of 5 muscle strength in all muscle groups. Normal speech. Results - Labs CBC & Chem 7: 05/17/18 19:15 05/17/18 19:15 Assessment and Plan - Plan Assessment/plan: 1. IUP at 35.1 2. Elevated blood pressure: History of elevated blood pressure in the office with elevated 24-hour urine protein, Results are not available at this time and the patient is not aware of the results. Will admit for observation overnight with elevated PC ratio 0.37. BP improved with bedrest. Will obtain 24 hour urine total protein results in the morning and observe for resolution of headache as patient has a history of headaches outside of . Discussed management of preeclampsia that typically requires delivery prior to EDC, usually at 37 weeks unless symptoms or other concerns require delivery prior to 37 weeks for preeclampsia with severe features. 3. History of previous delivery followed by x2: discussed that delivery method would ultimately depend on the severity of her disease and comfort level of the attending physician whether she would be offered a conservative induction of labor or delivery. The patient is not interested in bilateral tubal ligation at this time. 4. Tobacco use: Advised to discontinue tobacco use 5. well-being: Reassuring testing with reactive NST and category 1 heart rate tracing 6. Prematurity: will administer betamethasone. Discharge Plan - Discharge Condition Condition: Stable - Physicians Team Primary Care Provider: Primary Care Jeri Adkins Attending Provider: Luz Maria Montano Rxs /Orders / Referrals /Forms Prescriptions: No Action PMFSH - Travel History Recent Travel in the [place] Within the Last 8 Weeks: No Recent Travel Out of the Country Within the Last 8 Weeks: No Medications and Allergies Active Medications: Active Medications Acetaminophen (Tylenol) 650 mg PO Q4H PRN PRN Reason: PAIN SCALE 1 TO 5 Al Hydrox/Mg Hydrox/Simethicone (Mag-Al Plus Susp Liq) 30 ml PO QID PRN PRN Reason: HEARTBURN Betamethasone Acet/Betameth SodPhos (Celestone Soluspan Inj) 12 mg IM Q24H EMRE Stop: 05/19/18 20:59 Last Admin: 05/17/18 21:10 Dose: 12 mg Docusate Sodium (Colace) 100 mg PO DAILY EMRE Ferrous Sulfate (Ferosul) 325 mg PO BID EMRE Last Admin: 05/17/18 21:10 Dose: 325 mg Ondansetron HCl (Zofran Odt) 4 mg PO Q6H PRN PRN Reason: NAUSEA OR VOMITING Vit/Calcium/Iron/Folic Ac (Stuartnatal Plus 3) 1 tab PO DAILY EMRE Sodium Chloride (Ns Flush) 2 ml IV.FLUSH BID EMRE Sodium Chloride (Ns Flush) 2 ml IV.FLUSH PRN PRN PRN Reason: FLUSH AFTER USING IV ACCESS Sodium Chloride (Ns Flush) 2 ml IV.FLUSH BID EMRE Sodium Chloride (Ns Flush) 2 ml IV.FLUSH PRN PRN PRN Reason: FLUSH AFTER USING IV ACCESS Sodium Chloride (Ns Flush) 2 ml IV.FLUSH BID EMRE Sodium Chloride (Ns Flush) 2 ml IV.FLUSH PRN PRN PRN Reason: FLUSH AFTER USING IV ACCESS Zolpidem Tartrate (Ambien) 5 mg PO HS PRN PRN Reason: SLEEP Allergies Allergy/AdvReac Type Severity Reaction Status Date / Time No Known Allergies Allergy Verified 05/17/18 19:00 Home Medications Medication Instructions Recorded Confirmed Type acetaminophen 650 mg PO Q4H PRN 05/17/18 05/17/18 History prenat.vits,steve,[id number] 1 tab PO DAILY 05/17/18 05/17/18 History [ Vitamin] Exam Vital signs: Vital Signs 05/17/18 18:49 05/17/18 19:05 05/17/18 19:07 Temperature 98.9 F Pulse Rate 107 H 106 H Respiratory Rate 16 Blood Pressure 141/88 H 125/99 H 05/17/18 19:31 05/17/18 20:07 05/17/18 21:26 Temperature Pulse Rate 93 H 79 Respiratory Rate 16 Blood Pressure 123/84 118/71 05/17/18 21:30 Temperature Pulse Rate Respiratory Rate 18 Blood Pressure Intake & Output 05/17/18 05/17/18 05/18/18 06:59 18:59 06:59 Weight 180 kg Results - Labs CBC & Chem 7: 05/17/18 19:15 05/17/18 19:15 Labs: Laboratory Results - last 24 hr 05/17/18 05/17/18 05/17/18 19:15 19:15 19:15 WBC 13.1 H RBC 3.97 L Hgb 11.7 Hct 35.4 MCV 89.1 MCH 29.4 MCHC 33.0 RDW 13.0 Plt Count 152 MPV 10.9 Sodium 139 Potassium 3.8 Chloride 106 Carbon Dioxide 19.9 L Anion Gap 13 BUN 8 Creatinine 0.62 Estimated GFR Greater than 89 Random Glucose 87 Uric Acid 6.0 Calcium 8.2 L Total Bilirubin 0.4 AST 18 ALT 17 Alkaline Phosphatase 165 H Total Protein 6.8 Albumin 3.0 L Urine Color Amanda Urine Clarity Cloudy H Urine pH 5.0 Ur Specific [place] 1.031 Urine Protein 100 H Urine Glucose (UA) Negative Urine Ketones Trace H Urine Occult Blood Negative Urine Nitrate Negative Urine Bilirubin Negative Urine Urobilinogen 4 or greater Ur Leukocyte Esterase Moderate H Urine RBC 3 Urine WBC 7 H Ur Squamous Epith Cells 18 Urine Bacteria Occasional H Urine Mucus Moderate H Micro UA Comment Culture not ind Ur Microscopic Review Not Reportable Urine Culture Comments Culture not ind Ur Random Creatinine U Random Total Protein Protein/Creatinin Ratio 05/17/18 19:15 WBC RBC Hgb Hct MCV MCH MCHC RDW Plt Count MPV Sodium Potassium Chloride Carbon Dioxide Anion Gap BUN Creatinine Estimated GFR Random Glucose Uric Acid Calcium Total Bilirubin AST ALT Alkaline Phosphatase Total Protein Albumin Urine Color Urine Clarity Urine pH Ur Specific [place] Urine Protein Urine Glucose (UA) Urine Ketones Urine Occult Blood Urine Nitrate Urine Bilirubin Urine Urobilinogen Ur Leukocyte Esterase Urine RBC Urine WBC Ur Squamous Epith Cells Urine Bacteria Urine Mucus Micro UA Comment Ur Microscopic Review Urine Culture Comments Ur Random Creatinine 220 U Random Total Protein 82.4 H Protein/Creatinin Ratio 0.37 H Caprini VTE Risk Assessment Caprini VTE Risk Assessment: No/Low Risk (score <= 1) Caprini Risk Assessment Model: Point Value = 1 Point Value = 2 Point Value = 3 Point Value = 5 Age 41-60 Minor surgery BMI > 25 kg/m2 Swollen legs Varicose veins or History of unexplained or recurrent spontaneous Oral contraceptives or hormone replacement Sepsis (< 1 month) Serious lung disease, including pneumonia (< 1 month) Abnormal pulmonary function Acute myocardial infarction Congestive heart failure (< 1 month) History of inflammatory bowel disease Medical patient at bed rest Age 61-74 Arthroscopic surgery Major open surgery (> 45 min) Laparoscopic surgery (> 45 min) Malignancy Confined to bed (> 72 hours) Immobilizing plaster cast Central venous access Age >= 75 History of VTE Family history of VTE Factor V Leiden Prothrombin [id number] Lupus anticoagulant Anticardiolipin antibodies Elevated serum homocysteine Heparin-induced thrombocytopenia Other congenital or acquired thrombophilia Stroke (< 1 month) Elective arthroplasty Hip, pelvis, or leg fracture Acute spinal cord injury (< 1 month) Prophylaxis Regimen: Total Risk Factor Score Risk Level Prophylaxis Regimen 0-1 Low Early ambulation 2 Moderate Order ONE of the following: *Sequential Compression Device (SCD) *Heparin 5000 units SQ BID 3-4 Higher Order ONE of the following medications: *Heparin 5000 units SQ TID *Enoxaparin/Lovenox 40 mg SQ daily (WT < 150 kg, CrCl > 30 mL/min) *Enoxaparin/Lovenox 30 mg SQ daily (WT < 150 kg, CrCl > 10-29 mL/min) *Enoxaparin/Lovenox 30 mg SQ BID (WT < 150 kg, CrCl > 30 mL/min) AND/OR *Sequential Compression Device (SCD) 5 or more Highest Order ONE of the following medications: *Heparin 5000 units SQ TID (Preferred with Epidurals) *Enoxaparin/Lovenox 40 mg SQ daily (WT < 150 kg, CrCl > 30 mL/min) *Enoxaparin/Lovenox 30 mg SQ daily (WT < 150 kg, CrCl > 10-29 mL/min) *Enoxaparin/Lovenox 30 mg SQ BID (WT < 150 kg, CrCl > 30 mL/min) AND *Sequential Compression Device (SCD) Assessment and Plan - Plan Assessment/plan: 1. IUP at 35.1 2. Elevated blood pressure: History of elevated blood pressure in the office with elevated 24-hour urine protein, Results are not available at this time and the patient is not aware of the results. Will admit for observation overnight with elevated PC ratio 0.37. BP improved with bedrest. Will obtain 24 hour urine total protein results in the morning and observe for resolution of headache as patient has a history of headaches outside of . Discussed management of preeclampsia that typically requires delivery prior to EDC, usually at 37 weeks unless symptoms or other concerns require delivery prior to 37 weeks for preeclampsia with severe features. 3. History of previous delivery followed by x2: discussed that delivery method would ultimately depend on the severity of her disease and comfort level of the attending physician whether she would be offered a conservative induction of labor or delivery. The patient is not interested in bilateral tubal ligation at this time. 4. Tobacco use: Advised to discontinue tobacco use 5. well-being: Reassuring testing with reactive NST and category 1 heart rate tracing 6. Prematurity: will administer betamethasone.
[2018-05-18] MEDS: Docusate Sodium 100 MG Capsule PO SCH (08:39)
[2018-05-18] MEDS: Prenatal Vit/Ca/Iron/Folic Acid Tablet PO SCH (08:39)
[2018-05-18] MEDS: Ferrous Sulfate 325 MG Tablet PO SCH ×2 (08:40→21:10)
--- NOTE | 2018-05-18 10:25 | P.OBANTE ---
Subjective Interval History: Patient is a 32-year-old G 5 p 3 at 35 weeks and 2 days who is present observation after being found with elevated urine protein on her outpatient OBs office. Patient had no acute events overnight. Patient seen at bedside today reports to be feeling well. She denies any visual disturbances or symptoms as well as any neurological symptoms. She denies any right upper quadrant pain. Patient reports eating and drinking without nausea or vomiting. She denies any vaginal leakage of fluid or blood. Patient is urinating and having normal BMs without any pain or difficulty. Patient denies any chest pain, shortness of breath, fever, chills, calf pain, or new lower extremity swelling. Objective Vital Signs and I&O: Vital Signs 05/17/18 18:49 05/17/18 19:05 05/17/18 19:07 Temperature 98.9 F Pulse Rate 107 H 106 H Respiratory Rate 16 Blood Pressure 141/88 H 125/99 H 05/17/18 19:31 05/17/18 20:07 05/17/18 21:26 Temperature Pulse Rate 93 H 79 Respiratory Rate 16 Blood Pressure 123/84 118/71 05/17/18 21:30 05/17/18 22:45 05/18/18 00:13 Temperature 98.7 F Pulse Rate 88 Respiratory Rate 18 20 18 Blood Pressure 115/72 05/18/18 00:14 05/18/18 04:00 05/18/18 04:06 Temperature 98.8 F Pulse Rate 86 85 Respiratory Rate 18 Blood Pressure 127/72 127/73 05/18/18 08:35 05/18/18 08:36 Temperature 98.0 F Pulse Rate 84 Respiratory Rate 18 Blood Pressure 130/70 Intake & Output 05/17/18 05/18/18 05/18/18 18:59 06:59 18:59 Weight 180 kg Lab and Micro Results: Laboratory Results - last 24 hr 05/17/18 05/17/18 05/17/18 19:15 19:15 19:15 WBC 13.1 H RBC 3.97 L Hgb 11.7 Hct 35.4 MCV 89.1 MCH 29.4 MCHC 33.0 RDW 13.0 Plt Count 152 MPV 10.9 Sodium 139 Potassium 3.8 Chloride 106 Carbon Dioxide 19.9 L Anion Gap 13 BUN 8 Creatinine 0.62 Estimated GFR Greater than 89 Random Glucose 87 Uric Acid 6.0 Calcium 8.2 L Total Bilirubin 0.4 AST 18 ALT 17 Alkaline Phosphatase 165 H Total Protein 6.8 Albumin 3.0 L Urine Color Amanda Urine Clarity Cloudy H Urine pH 5.0 Ur Specific [place] 1.031 Urine Protein 100 H Urine Glucose (UA) Negative Urine Ketones Trace H Urine Occult Blood Negative Urine Nitrate Negative Urine Bilirubin Negative Urine Urobilinogen 4 or greater Ur Leukocyte Esterase Moderate H Urine RBC 3 Urine WBC 7 H Ur Squamous Epith Cells 18 Urine Bacteria Occasional H Urine Mucus Moderate H Micro UA Comment Culture not ind Ur Microscopic Review Not Reportable Urine Culture Comments Culture not ind Ur Random Creatinine U Random Total Protein Protein/Creatinin Ratio 05/17/18 19:15 WBC RBC Hgb Hct MCV MCH MCHC RDW Plt Count MPV Sodium Potassium Chloride Carbon Dioxide Anion Gap BUN Creatinine Estimated GFR Random Glucose Uric Acid Calcium Total Bilirubin AST ALT Alkaline Phosphatase Total Protein Albumin Urine Color Urine Clarity Urine pH Ur Specific [place] Urine Protein Urine Glucose (UA) Urine Ketones Urine Occult Blood Urine Nitrate Urine Bilirubin Urine Urobilinogen Ur Leukocyte Esterase Urine RBC Urine WBC Ur Squamous Epith Cells Urine Bacteria Urine Mucus Micro UA Comment Ur Microscopic Review Urine Culture Comments Ur Random Creatinine 220 U Random Total Protein 82.4 H Protein/Creatinin Ratio 0.37 H Physical Exam: GENERAL: Well-nourished, well-developed patient. CARDIOVASCULAR: Regular rate and rhythm without murmurs, gallops, or rubs. RESPIRATORY: Breath sounds equal bilaterally. No accessory muscle use. ABDOMEN/GI: Abdomen soft, non-tender. Gravid. GENITOURINARY: FHT's: Category: 1 Baseline: 130s Reactive: Yes Variability: Moderate Decels: None EXTREMITIES: No cyanosis or edema, non-tender, without signs of DVT. Assessment and Plan - Plan Patient is a 32-year-old G 5 p 3 at 35 weeks and 2 days who is present observation after being found with elevated urine protein on her outpatient OBs office. Patient suffers from atypical variant frequently. Blood pressures overnight have ranged between 115 and 127 systolic and between 72-73 diastolic. Patient currently asymptomatic and feeling well and is s/p betamethesone x1. Patient received a biophysical profile this morning and scored a6/8 due to no breathing. Patient seen by DIOGENES Acharya who recommends induction at 37 weeks along with several recommendations as seen below. -Continue routine antepartum care -Monitor blood pressures/vitals every 4 hours -24 hour protein urine collection -Monitor for any visual or neurologic symptoms -Monitor daily weights -Daily urine dips -Monitor and heart rate monitor -Strict I&Os -Daily NSTs -Bi weekly BPP, Doppler, and DEMETRA - growth at 3-4 week intervals -Preeclampsia labs on Mondays and -Deliver before 37 weeks if compromise is present or development of sever features. - Attending Attestation The patient was seen and examined by me and I participated in all brown decision making. Continue antepartum care and recommendations as per MFM. SMS
--- NOTE | 2018-05-18 10:43 | P.CON ---
History of Present Illness Service: Maternal Medicine Consult date: 05/18/18 Requesting Physician: Luz Maria Montano Reason for Consult: Suspected preeclampsia Primary Care Provider: Dr. Avalos Family Provider: No Primary Care Physician Chief Complaint: Elevated BP in the office History of Present Illness: The patient is a 32 yo A2 at 35 2/7 weeks gestation who came from her OB visit yesterday due to elevated BP and increased proteinuria of 732mg. She denies signs and symptoms of preeclampsia. She has no headaches, no blurry vision, no scotomata, no RUQ pain. There is good movement. There is no vaginal bleeding and no rupture of membranes. Review of Systems All other systems reviewed negative except as stated in HPI [facility] - History History Provided By: Patient - Medical History Medical History: Medical History (Last Updated 05/18/18 @ 12:12 by Beena Rojo MD) Patient denies medical problems - Surgical History Surgical History: Surgical History (Last Updated 05/18/18 @ 12:13 by Beena Rojo MD) Hx of section (Acute) - Tobacco History Tobacco Use In Past 30 Days: Yes Smoking Status: Current every day smoker (1/ ppd) - Travel History Recent Travel in the [place] Within the Last 8 Weeks: No Recent Travel Out of the Country Within the Last 8 Weeks: No Medications and Allergies Active Medications: Active Medications Acetaminophen (Tylenol) 650 mg PO Q4H PRN PRN Reason: PAIN SCALE 1 TO 5 Al Hydrox/Mg Hydrox/Simethicone (Mag-Al Plus Susp Liq) 30 ml PO QID PRN PRN Reason: HEARTBURN Betamethasone Acet/Betameth SodPhos (Celestone Soluspan Inj) 12 mg IM Q24H [facility] Stop: 05/19/18 20:59 Last Admin: 05/17/18 21:10 Dose: 12 mg Docusate Sodium (Colace) 100 mg PO DAILY [facility] Last Admin: 05/18/18 08:39 Dose: 100 mg Ferrous Sulfate (Ferosul) 325 mg PO BID [facility] Last Admin: 05/18/18 08:40 Dose: 325 mg Ondansetron HCl (Zofran Odt) 4 mg PO Q6H PRN PRN Reason: NAUSEA OR VOMITING Vit/Calcium/Iron/Folic Ac (Stuartnatal Plus 3) 1 tab PO DAILY [facility] Last Admin: 05/18/18 08:39 Dose: 1 tab Sodium Chloride (Ns Flush) 2 ml IV.FLUSH BID EMRE Last Admin: 05/18/18 08:42 Dose: Not Given Sodium Chloride (Ns Flush) 2 ml IV.FLUSH PRN PRN PRN Reason: FLUSH AFTER USING IV ACCESS Sodium Chloride (Ns Flush) 2 ml IV.FLUSH BID EMRE Sodium Chloride (Ns Flush) 2 ml IV.FLUSH PRN PRN PRN Reason: FLUSH AFTER USING IV ACCESS Sodium Chloride (Ns Flush) 2 ml IV.FLUSH BID EMRE Sodium Chloride (Ns Flush) 2 ml IV.FLUSH PRN PRN PRN Reason: FLUSH AFTER USING IV ACCESS Zolpidem Tartrate (Ambien) 5 mg PO HS PRN PRN Reason: SLEEP Last Admin: 05/17/18 22:47 Dose: 5 mg Allergies Allergy/AdvReac Type Severity Reaction Status Date / Time No Known Allergies Allergy Verified 05/17/18 19:00 Home Medications Medication Instructions Recorded Confirmed Type acetaminophen 650 mg PO Q4H PRN 05/17/18 05/17/18 History prenat.vits,steve,[id number] 1 tab PO DAILY 05/17/18 05/17/18 History [ Vitamin] Physical Exam Vital signs: Vital Signs 05/17/18 18:49 05/17/18 19:05 05/17/18 19:07 Temperature 98.9 F Pulse Rate 107 H 106 H Respiratory Rate 16 Blood Pressure 141/88 H 125/99 H 05/17/18 19:31 05/17/18 20:07 05/17/18 21:26 Temperature Pulse Rate 93 H 79 Respiratory Rate 16 Blood Pressure 123/84 118/71 05/17/18 21:30 05/17/18 22:45 05/18/18 00:13 Temperature 98.7 F Pulse Rate 88 Respiratory Rate 18 20 18 Blood Pressure 115/72 05/18/18 00:14 05/18/18 04:00 05/18/18 04:06 Temperature 98.8 F Pulse Rate 86 85 Respiratory Rate 18 Blood Pressure 127/72 127/73 05/18/18 08:35 05/18/18 08:36 Temperature 98.0 F Pulse Rate 84 Respiratory Rate 18 Blood Pressure 130/70 Intake & Output 05/17/18 05/18/18 05/18/18 18:59 06:59 18:59 Weight 180 kg - Constitutional no acute distress - Routine HEENT Exam Head: Present: normocephalic, atraumatic Eye: Present: EOMI, PERRL ENT: Present: mucous membranes moist - Routine Neck Exam Present: supple, full ROM - Detailed Neck Exam: Thyroids Thyroid: Present: normal - Routine Abdominal Exam Present: soft, normoactive bowel sounds - Detailed Lower Extremity Exam Hip: Bilateral normal inspection Upper leg: Bilateral: normal inspection - Routine Skin Exam Present: intact - Routine Neurological Exam Present: alert, oriented X3 Assessment and Plan - Assessment (1) Code(s): Z34.90 - Encounter for supervision of normal , unspecified, unspecified trimester Status: Acute (2) Preeclampsia Code(s): O14.90 - Unspecified pre-eclampsia, unspecified trimester Status: Acute Plan: IMPRESSION: 1. IUP at 35 2/7 weeks gestation 2. Preeclampsia with out severe features - Patient with new onset of hypertension - Blood pressures have improved since admission and are currently ~ 120/90's - She is asymptomatic - Labs are normal, with the exception of the 24hr urine collection of 732mg protein (no baseline labs available) - Patient has a history of previous preeclampsia with G1 in 2000 3. Previous c/s x 1 4. Previous x 2 5. Tobacco use 6. h/o gestational thrombocytopenia 7. Trichomonas and BV, treated this - Test of cure needed (was due at today's appointment) Counseling: We discussed the diagnosis of preeclampsia, criteria for severe disease and management plan at this gestational age. Complications of preeclampsia include development of severe HTN, stroke, blindness, renal insufficiency, convulsions, liver dysfunction, coagulopathy, growth restriction, placental abruption, demise and complications of prematurity. Indications for delivery in order to avoid these complications include: HTN: SBP > 160 or DBP > 105-110 mm Hg Pulmonary Edema Neurologic signs and symptoms, including persistent Headache, blurred vision, or scotmata Hyperreflexia Convulsions Renal insufficiency (Creatinine 1.2) Oliguric < 600cc in 24 hr Hemolysis (LDH > 600) Thrombocyotpenia platelet < 100K Elevated liver enzymes Epigastric or RUQ pain RECOMMENDATION: 1. Monitor BP closely 2. Follow strict I&O's 3. Daily weight 4. Preeclampsia labs twice weekly on Mon/Thur 5. 24hr urine collections for creatinine clearance and total protein once weekly 6. Daily NST 7. Twice weekly BPP, Doppler and DEMETRA 8. growth at 3-4 week intervals 9. Delivery is indicated in the presence of compromise, development of severe preeclampsia or at 37 weeks. Thank you for allowing us to participate in the care of your obstetrical patient. Total time: 60 min with > 50% of the time spent in consultation and coordination of time. (1) Qualifiers: Weeks of gestation: 35 weeks Qualified Code(s): Z3A.35 - 35 weeks gestation of (2) Preeclampsia Qualifiers: Trimester: third trimester Qualified Code(s): O14.93 - Unspecified pre- eclampsia, third trimester
[2018-05-18 12:33] LABS: Amphetamine Screen,Urine Neg (Neg); Barbiturate Screen,Urine Neg (Neg); Cannabinoid Screen,Urine Neg (Neg); Cocaine Screen,Urine Neg (Neg)
[2018-05-18 12:37] LABS: Opiate Screen,Urine Neg (Neg)
[2018-05-18] MEDS: Betamethasone Sod Phos/Acetate Inj 30 MG/5 ML Vial IM SCH (21:10)
[2018-05-19] MEDS: Ferrous Sulfate 325 MG Tablet PO SCH (08:41)
[2018-05-19] MEDS: Docusate Sodium 100 MG Capsule PO SCH (08:41)
[2018-05-19] MEDS: Prenatal Vit/Ca/Iron/Folic Acid Tablet PO SCH (08:41)
--- NOTE | 2018-05-19 09:45 | P.OBANTE ---
Subjective Interval History: Patient is a 32-year-old G 5 p 3 at 35 weeks and 3 days who is admitted to the OB floor for management of atypical preeclampsia after being found with elevated urine protein in her outpatient OBs office. Patient had no acute events overnight. Patient seen at bedside today reports to be feeling well. She denies any visual disturbances/symptoms or any neurological symptoms. She denies any right upper quadrant pain. Patient reports eating and drinking without nausea or vomiting. She denies any vaginal leakage of fluid or blood. Patient is urinating and having normal BMs without any pain or difficulty. Patient denies any chest pain, shortness of breath, fever, chills, calf pain, or new lower extremity swelling. Patient had a question about leaving today which was answered to her satisfaction patient had no other questions. Objective Vital Signs and I&O: Vital Signs 05/18/18 11:18 05/18/18 11:19 05/18/18 17:22 Temperature 98.2 F 98.2 F Pulse Rate 82 84 Respiratory Rate 20 18 Blood Pressure 132/72 136/72 05/18/18 20:02 05/18/18 22:25 05/19/18 06:12 Temperature 97.9 F 98.3 F 97.9 F Pulse Rate 77 77 76 Respiratory Rate 18 18 18 Blood Pressure 121/65 127/76 122/64 05/19/18 07:39 Temperature 98.5 F Pulse Rate 66 Respiratory Rate 18 Blood Pressure 125/60 Lab and Micro Results: Laboratory Results - last 24 hr 05/18/18 11:24 Urine Opiates Screen Neg Ur Barbiturates Screen Neg Ur Amphetamines Screen Neg U Benzodiazepines Scrn Neg Urine Cocaine Screen Neg U Cannabinoids Screen Neg Physical Exam: GENERAL: Well-nourished, well-developed patient. CARDIOVASCULAR: Regular rate and rhythm without murmurs, gallops, or rubs. RESPIRATORY: Breath sounds equal bilaterally. No accessory muscle use. ABDOMEN/GI: Abdomen soft, non-tender. FHT's: Category: 2 Baseline: 130s Reactive: Yes Variability: Moderate Decels: Occasional variable decelerations, 2 within 20 minutes EXTREMITIES: No cyanosis or edema, non-tender, without signs of DVT. Assessment and Plan - Plan Patient is a 32-year-old G 5 p 3 at 35 weeks and 3 days who is admitted to the OB floor for management of atypical preeclampsia after being found with elevated urine protein in her outpatient OBs office. Patient suffers from atypical variant of preeclampsia with elevated urine proteins without hypertension. Patient has remained normotensive overnight with systolic blood pressures in the 120s. Patient currently asymptomatic and feeling well and is s /p betamethesone x1. Patient received a biophysical profile yesterday that scored 6/8 due to no breathing observed. Patient seen by DIOGENES Acharya who recommends induction at 37 weeks along with several recommendations as seen below. Continue with current recommendations and treatment. -Continue routine antepartum care -Monitor blood pressures/vitals every 4 hours -24 hour protein urine collection -Monitor for any visual or neurologic symptoms -Monitor daily weights -Daily urine dips -Monitor and heart rate monitor -Strict I&Os -Daily NSTs -Bi weekly BPP, Doppler, and DEMETRA - growth at 3-4 week intervals -Preeclampsia labs on Mondays and -Deliver before 37 weeks if compromise is present or development of sever features.
--- NOTE | 2018-05-19 14:26 | P.OBGPN ---
Pt is a 32y/o @ 35.3wks. She has a h/o CS x1 and x2. She was sent from the clinic for proteinuria and she was admitted for presumed preE following a P:C of 0.380. Recommendations were made by [facility] for continued admission for preE and delivery at 37wks. Since admission she has been normotensive 110-120/60-70s. She is asymptomatic. A 24hr urine protein collection was obtained which was 424mg total. A review of the chart demonstrates the presence of leukocyte esterace. This proteinuria may likely be 2' to a UTI. MFM was called today to discuss pt's status. MD stated they typically manage preE (even mild) as an in patient, however the concern that proteinuria was merely 2' to UTI was valid. Given normotensive, asx, and pt reliable for f/u, it is reasonable to d/c home with Rx macrobid. Pt was counseled on preE precautions and importance of f/u with [facility] at the beginning of next week. If she develops symptoms of preE prior to then, she has been instructed to return to the hospital. As a precautions, she was advised not to work this week and was placed on modified bed rest. Pending her BP and urine dip at clinic next week following abx, consider a repeat 24hr urine protein. All questions answered. Case also discussed with Dr. Morgan who agreed plan of care was reasonable.
[2018-05-19] MEDS ORDERED: Nitrofurantoin Monohydrate-Macrocrystal 100 MG Capsule PO SCH (18:00)
== END 2018-05-19 14:52 | disposition home or self-care (01) ==
LOC: HOBED 18:35 → H2E 18:35
PROVIDERS: ADMIT Obstetrics & Gynecology; ATTEND Obstetrics & Gynecology

== ENCOUNTER 2018-06-14 02:30 | Inpatient (IN) ==
[2018-06-14] MEDS ORDERED: Sodium Chlor 0.9% Inj 500 ML IV.SIG PRN (03:18)
[2018-06-14] MEDS ORDERED: Naloxone Inj 0.4 MG/ML Vial IV.PUSH PRN ×2 (03:18→11:45)
[2018-06-14] MEDS ORDERED: fentaNYL Citrate Inj 100 MCG/2 ML Ampul IV.PUSH PRN (03:18)
[2018-06-14] MEDS ORDERED: Oxytocin 30 Units/500ml Premix 30 UNITS/500 ML BAG IV.SIG ONE (03:18)
[2018-06-14] MEDS ORDERED: Sod Chloride 0.9% Inj 1,000 ML IV.CONT PRN (03:18)
[2018-06-14] MEDS ORDERED: Citric Acid/Sodium Citrate Liq 30 ML UDC PO SCH (03:30)
[2018-06-14 03:33] LABS: Bacteria,Urine Rare /hpf; Bilirubin,Urine Negative (Negative); Clarity,Urine Hazy (Clear); Color,Urine Yellow (Yellw/Straw); Glucose,Urine (UA) Negative (Negative); Leukocyte Esterase,Urine Trace (Negative); Mucus,Urine Few /lpf (Occasional); Nitrite,Urine Negative (Negative); Specific Gravity,Urine 1.012 (1.002-1.035); Squamous Epithelial Cell,Urine 6 /hpf (0-5)
[2018-06-14 03:38] LABS: Amphetamine Urine With Conf Neg (Neg); Benzodiazepine Urine With Conf Neg (Neg)
[2018-06-14 03:39] LABS: Baso # (Auto) 0.1 th/mm3 (0.0-0.2); Baso % (Auto) 0.5 % (0.0-2.0); Eos # (Auto) 0.3 th/mm3 (0.0-0.4); Eos % (Auto) 1.4 % (0.0-4.0); Hemoglobin 12.5 gm/dL (11.6-15.3); Lymph # (Auto) 1.9 th/mm3 (1.0-4.8); Lymph % (Auto) 10.6 % (9.0-44.0); Mean Corpuscular HGB Conc 33.8 % (32.0-36.0); Mean Corpuscular Hemoglobin 29.3 pg (27.0-34.0); Mean Corpuscular Volume 86.5 fL (80.0-100.0); Mean Platelet Volume 10.4 fL (7.0-11.0); Mono # (Auto) 1.2 th/mm3 (0.0-0.9); Mono % (Auto) 6.3 % (0.0-8.0); Neut # (Auto) 14.8 th/mm3 (1.8-7.7); Neut % (Auto) 81.2 % (16.0-70.0); Platelet Count 124 th/mm3 (150-450); Red Blood Count 4.27 mil/mm3 (4.00-5.30); White Blood Count 18.3 th/mm3 (4.0-11.0)
--- NOTE | 2018-06-14 03:40 | P.HPOB ---
History of Present Illness Primary Care Physician: [facility] Chief Complaint: Leaking of fluid since 5 PM on 06/13/18 History of Present Illness: 32-year-old presents to labor and delivery complaining of leakage of fluid since 5 PM on June 13, 2018. Patient reports history of successful 2 desires with this as well. History of trichomonas treated 3 during the last treatment was 1 week ago test of cure was not performed test of cure performed in triage today. Patient is a smoker pelvis was tested to 9 pounds previously. Her previous the indication was for elevated BP during this . Weeks Gestation:: 39 Para: 3 : 6 - Inpatient Certification I certify that the inpatient services were ordered in accordance with Medicare regulations governing the order. This includes certification that hospital inpatient services are reasonable and necessary and in the case of services not specified as inpatient-only under 42 CFR 419.22(n), that they are appropriately provided as inpatient services in accordance to with the 2-midnight benchmark under 43 CFR 412.3(e) Estimated Total Length of Stay (Days): 3 Plans for Post Hospital Care: Home Review of Systems All other systems reviewed negative except as stated in HPI [facility] - History History Provided By: Patient - Surgical History Surgical History: Surgical History (Last Updated 06/01/18 @ 13:37 by Jose Rendon MD) History of tonsillectomy Previous section - Tobacco History Second Hand Smoke Exposure: Yes Smoking Status: Current every day smoker (1/4 ppd) Tobacco Type: Cigarettes - Travel History History of Recent Travel: No Recent Travel in the [place] Within the Last 8 Weeks: No Recent Travel Out of the Country Within the Last 8 Weeks: No Medications and Allergies Active Medications: Active Medications Citric Acid/Sodium Citrate (Sodium Citrate/Citric Acid Liq) 30 ml PO [employer] [facility] Stop: 06/18/18 03:29 Fentanyl Citrate (Fentanyl Inj) 50 mcg IV.PUSH Q1H PRN PRN Reason: Pain Scale 3 - 5 Fentanyl Citrate (Fentanyl Inj) 100 mcg IV.PUSH Q1H PRN PRN Reason: PAIN SCALE 6 TO 10 Lactated Ringer's (Lr 1000 Ml Inj) 1,000 mls @ 125 mls/hr IV.CONT .Q8H [facility] Lactated Ringer's (Lr 1000 Ml Inj) 1,000 mls @ 3,000 mls/hr IV.SIG UNSCH PRN PRN Reason: compromise or epidural Metronidazole/Sodium Chloride (Flagyl 500 Mg Inj) 100 mls @ 100 mls/hr IV.SIG ONCE ONE Stop: 06/14/18 04:18 Sodium Chloride (Ns Inj) 1,000 mls @ 100 mls/hr IV.CONT .Q10H PRN PRN Reason: SEE LABEL COMMENTS Oxytocin (Pitocin 30 Units/Ns 500 Ml Premix) 30 units in 500 mls @ 999 mls/hr IV.SIG BOLUS ONE Stop: 06/14/18 03:48 Sodium Chloride (Ns Inj) 500 mls @ 1,000 mls/hr IV.SIG UNSCH PRN PRN Reason: SEE LABEL COMMENTS Lidocaine HCl (Xylocaine 1% Inj) 0.1 ml I-DERMAL PRN PRN PRN Reason: For IV start Stop: 06/17/18 03:17 Lidocaine HCl (Xylocaine 1% Inj) 10 ml INFILTRATN PRN PRN PRN Reason: For episiotomy repair Stop: 06/16/18 03:17 Mineral Oil (Muri-Lube Oil) 10 ml TOPICAL PRN PRN PRN Reason: PRN perineal massage Naloxone HCl (Narcan Inj) 0.1 mg IV.PUSH Q2M PRN PRN Reason: for opiate reversal Allergies Allergy/AdvReac Type Severity Reaction Status Date / Time No Known Allergies Allergy Verified 05/17/18 19:00 Home Medications Medication Instructions Recorded Confirmed Type RX: acetaminophen 650 mg PO Q4H PRN 05/17/18 05/17/18 History prenat.vits,steve,rdm-naog-fqfby 1 tab PO DAILY 05/17/18 05/17/18 History [ Vitamin] Exam Vital signs: Vital Signs 06/14/18 02:59 06/14/18 03:00 06/14/18 03:01 Temperature 98.0 F Pulse Rate 87 Respiratory Rate 18 Blood Pressure 159/78 H Intake & Output 06/13/18 06/13/18 06/14/18 06:59 18:59 06:59 Weight 89.358 kg Narrative: GENERAL: Well-nourished, well-developed patient. SKIN: Warm and dry. HEAD: Normocephalic and atraumatic. EYES: No scleral icterus. No injection or drainage. ENT: No nasal drainage noted. Mucous membranes pink. Airway patent. NECK: Supple, trachea midline. No JVD. CARDIOVASCULAR: Regular rate and rhythm without murmurs, gallops, or rubs. RESPIRATORY: Breath sounds equal bilaterally. No accessory muscle use. BREASTS: Bilateral exam showed no masses , no retractions, no nipple discharge. ABDOMEN/GI: Abdomen soft, non-tender, bowel sounds present, no rebound, no guarding Gravid to 39 weeks size Fundal Height: Same as gestational age GENITOURINARY: External Genitalia: intact and normal in appearance BUS glands: Unremarkable Cervix: Soft Dilatation: 6 Effacement: 100 Station: 0 to +1 Presentation: Vertex Membranes: Forebag intact Uterine Contractions: Present FHT's: Category: 1 Reactive: Yes Variability: Moderate Decels: No EXTREMITIES: No cyanosis or edema. BACK: Nontender without obvious deformity. No CVA tenderness. NEUROLOGICAL: Awake and alert. Motor and sensory grossly within normal limits. Five out of 5 muscle strength in all muscle groups. Normal speech. Caprini VTE Risk Assessment Caprini VTE Risk Assessment: No/Low Risk (score <= 1) Caprini Risk Assessment Model: Point Value = 1 Point Value = 2 Point Value = 3 Point Value = 5 Age 41-60 Minor surgery BMI > 25 kg/m2 Swollen legs Varicose veins or History of unexplained or recurrent spontaneous Oral contraceptives or hormone replacement Sepsis (< 1 month) Serious lung disease, including pneumonia (< 1 month) Abnormal pulmonary function Acute myocardial infarction Congestive heart failure (< 1 month) History of inflammatory bowel disease Medical patient at bed rest Age 61-74 Arthroscopic surgery Major open surgery (> 45 min) Laparoscopic surgery (> 45 min) Malignancy Confined to bed (> 72 hours) Immobilizing plaster cast Central venous access Age >= 75 History of VTE Family history of VTE Factor V Leiden Prothrombin [id number] Lupus anticoagulant Anticardiolipin antibodies Elevated serum homocysteine Heparin-induced thrombocytopenia Other congenital or acquired thrombophilia Stroke (< 1 month) Elective arthroplasty Hip, pelvis, or leg fracture Acute spinal cord injury (< 1 month) Prophylaxis Regimen: Total Risk Factor Score Risk Level Prophylaxis Regimen 0-1 Low Early ambulation 2 Moderate Order ONE of the following: *Sequential Compression Device (SCD) *Heparin 5000 units SQ BID 3-4 Higher Order ONE of the following medications: *Heparin 5000 units SQ TID *Enoxaparin/Lovenox 40 mg SQ daily (WT < 150 kg, CrCl > 30 mL/min) *Enoxaparin/Lovenox 30 mg SQ daily (WT < 150 kg, CrCl > 10-29 mL/min) *Enoxaparin/Lovenox 30 mg SQ BID (WT < 150 kg, CrCl > 30 mL/min) AND/OR *Sequential Compression Device (SCD) 5 or more Highest Order ONE of the following medications: *Heparin 5000 units SQ TID (Preferred with Epidurals) *Enoxaparin/Lovenox 40 mg SQ daily (WT < 150 kg, CrCl > 30 mL/min) *Enoxaparin/Lovenox 30 mg SQ daily (WT < 150 kg, CrCl > 10-29 mL/min) *Enoxaparin/Lovenox 30 mg SQ BID (WT < 150 kg, CrCl > 30 mL/min) AND *Sequential Compression Device (SCD) Assessment and Plan - Diagnosis (1) 39 weeks gestation of Code(s): Z3A.39 - 39 weeks gestation of Status: Acute (2) Desires (vaginal after ) trial Code(s): O34.219 - Maternal care for unspecified type scar from previous delivery Status: Acute (3) Trichomonas exposure Code(s): Z20.2 - Contact with and (suspected) exposure to infections with a predominantly sexual mode of transmission Status: Acute - Plan Admit to labor and delivery. Previous 2 for Start Flagyl IVexposure to trichomonas test of cure done today, err on the side of caution Alternatives benefits complications discussed patient expressed verbal understanding CBC /CMP-as needed at this time BP is noted to be elevated however patient is in labor pain we will reassess
[2018-06-14 04:55] LABS: Alanine Aminotransferase 14 U/L (10-53); Anion Gap 13 meq/L (5-15); Aspartate Aminotransferase 13 U/L (15-37); Blood Urea Nitrogen 9 mg/dL (7-18); Calcium 8.1 mg/dL (8.5-10.1); Carbon Dioxide 23.1 meq/L (21.0-32.0); Chloride 104 meq/L (98-107); Glomerular Filtration Rate Greater Than 89 mL/min (>89); Glucose,Random 76 mg/dL (74-106); Potassium 3.7 meq/L (3.5-5.1); Sodium 140 meq/L (136-145)
[2018-06-14 04:57] LABS: Alkaline Phosphatase 236 U/L (45-117); Total Protein 6.9 g/dL (6.4-8.2)
[2018-06-14] MEDS ORDERED: Oxytocin 30 Units/500ml Premix 30 UNITS/500 ML BAG IV.SIG PRN (06:17)
[2018-06-14] MEDS: fentaNYL Citrate Inj 100 MCG/2 ML Ampul IV.PUSH PRN ×2 (07:41→08:58)
--- NOTE | 2018-06-14 09:51 | P.OBLABOR ---
Subjective Interval history: Patient seen and examined at bedside this morning. Patient slightly uncomfortable, however still is not want epidural. Objective Vital Signs: Vital Signs - 8 hr 06/14/18 02:59 06/14/18 03:00 06/14/18 03:01 Temperature 98.0 F Pulse Rate 87 Respiratory Rate 18 Blood Pressure 159/78 H 06/14/18 03:41 06/14/18 04:07 06/14/18 04:21 Temperature Pulse Rate 86 83 Respiratory Rate 18 18 Blood Pressure 136/84 141/71 H 06/14/18 04:57 06/14/18 05:01 06/14/18 06:18 Temperature Pulse Rate 85 87 Respiratory Rate 18 20 Blood Pressure 151/92 H 162/85 H 06/14/18 06:21 06/14/18 07:02 06/14/18 07:31 Temperature 98.1 F Pulse Rate 85 85 86 Respiratory Rate 18 Blood Pressure 145/80 H 151/81 H 125/88 06/14/18 07:45 06/14/18 08:00 06/14/18 08:05 Temperature Pulse Rate 91 H Respiratory Rate 16 18 16 Blood Pressure 156/87 H 06/14/18 08:19 06/14/18 08:30 06/14/18 08:40 Temperature Pulse Rate 92 H 88 94 H Respiratory Rate Blood Pressure 154/82 H 147/82 H 06/14/18 08:51 06/14/18 08:55 06/14/18 09:00 Temperature 98.8 F Pulse Rate 92 H 93 H 88 Respiratory Rate 18 Blood Pressure 144/79 H 141/90 H 06/14/18 09:10 06/14/18 09:30 06/14/18 09:40 Temperature Pulse Rate 101 H 90 94 H Respiratory Rate Blood Pressure 138/86 Objective: Examined by nursing at 9AM: 8/100/0 at 9AM Assessment and Plan - Diagnosis (1) Desires (vaginal after ) trial Code(s): O34.219 - Maternal care for unspecified type scar from previous delivery Status: Acute Plan: Repeat x 3 Continue normal labor pattern - Anticipate delivery - Pitocin on 3 - Cat 1 tracing , cxns q2-3 regular - Cont to monitor (2) Trichomonas exposure Code(s): Z20.2 - Contact with and (suspected) exposure to infections with a predominantly sexual mode of transmission Status: Acute Plan: Cont IV Flagyl for trich positive
[2018-06-14] MEDS ORDERED: Lidocaaine 1.5%/Epinephrine 1:200,000 PF Inj 5 ML Amp ONE (10:45)
[2018-06-14] MEDS ORDERED: Lidocaine PF 1% Inj 5 ML Vial ONE (10:45)
[2018-06-14] MEDS ORDERED: fentaNYL 2MCG-Bupiv 0.125% Epi 150 ML EPIDURAL ONE (10:46)
--- NOTE | 2018-06-14 10:54 | P.PN ---
Subjective Interval history: Patient is a 32 year-old with prior C/S for 9 pound delivered for preeclampsia. The patient presented overnight for LOF since 5 pm last night and was admitted in labor with a cervical examination of 6 cm on admission. She has progressed to 8cm but has had a protracted course and been 8 cm since 6am. She was started on oxytocin which was discontinued for some small variables. We discussed the possibility of delivery for protracted labor and possible arrest of dilation. EFW 8.5#, extrapolated from 33 week U/S. Discussed risk of shoulder dystocia with risk of permanent and irreversible nerve damage and other risks. Patient desires some additional time, will give epidural to see if assists with relaxation. Will proceed with delivery if FHR not reassuring or no further change in 30-60 minutes. All of the patient's questions were answered. Physical Exam Vital signs: Vital Signs 06/14/18 02:59 06/14/18 03:00 06/14/18 03:01 Temperature 98.0 F Pulse Rate 87 Respiratory Rate 18 Blood Pressure 159/78 H 06/14/18 03:41 06/14/18 04:07 06/14/18 04:21 Temperature Pulse Rate 86 83 Respiratory Rate 18 18 Blood Pressure 136/84 141/71 H 06/14/18 04:57 06/14/18 05:01 06/14/18 06:18 Temperature Pulse Rate 85 87 Respiratory Rate 18 20 Blood Pressure 151/92 H 162/85 H 06/14/18 06:21 06/14/18 07:02 06/14/18 07:31 Temperature 98.1 F Pulse Rate 85 85 86 Respiratory Rate 18 Blood Pressure 145/80 H 151/81 H 125/88 06/14/18 07:45 06/14/18 08:00 06/14/18 08:05 Temperature Pulse Rate 91 H Respiratory Rate 16 18 16 Blood Pressure 156/87 H 06/14/18 08:19 06/14/18 08:30 06/14/18 08:40 Temperature Pulse Rate 92 H 88 94 H Respiratory Rate Blood Pressure 154/82 H 147/82 H 06/14/18 08:51 06/14/18 08:55 06/14/18 09:00 Temperature 98.8 F Pulse Rate 92 H 93 H 88 Respiratory Rate 18 Blood Pressure 144/79 H 141/90 H 06/14/18 09:10 06/14/18 09:30 06/14/18 09:40 Temperature Pulse Rate 101 H 90 94 H Respiratory Rate Blood Pressure 138/86 06/14/18 09:55 06/14/18 10:35 Temperature Pulse Rate 103 H 92 H Respiratory Rate Blood Pressure 141/97 H 158/82 H Intake & Output 06/13/18 06/14/18 06/14/18 18:59 06:59 18:59 Weight 89.358 kg Results - Labs CBC & Chem 7: 06/14/18 03:30 06/14/18 03:30 Laboratory Results - last 24 hr 06/14/18 06/14/18 06/14/18 03:00 03:00 03:15 WBC RBC Hgb Hct MCV MCH MCHC RDW Plt Count MPV Neut % (Auto) Lymph % (Auto) [place] % (Auto) Eos % (Auto) Baso % (Auto) Neut # (Auto) Lymph # (Auto) [place] # (Auto) Eos # (Auto) Baso # (Auto) WBC Differential Differential Comment Sodium Potassium Chloride Carbon Dioxide Anion Gap BUN Creatinine Estimated GFR Random Glucose Calcium Total Bilirubin AST ALT Alkaline Phosphatase Total Protein Albumin Urine Color Yellow Urine Clarity Hazy H Urine pH 6.0 Ur Specific [place] 1.012 Urine Protein Negative Urine Glucose (UA) Negative Urine Ketones Negative Urine Occult Blood Small H Urine Nitrate Negative Urine Bilirubin Negative Urine Urobilinogen Less than 2 Ur Leukocyte Esterase Trace H Urine RBC 2 Urine WBC 5 Ur Squamous Epith Cells 6 Urine Bacteria Rare H Urine Mucus Few H Micro UA Comment Culture not ind Ur Microscopic Review Not Reportable Urine Culture Comments Culture not ind Clue Cells (Wet Prep) None seen Trichomonas (Wet Prep) None seen Yeast (Wet Prep) None seen Urine Opiates Screen Neg Ur Barbiturates Screen Neg Ur Amphetamine Screen Neg U Benzodiazepines Scrn Neg Urine Cocaine Screen Neg U Cannabinoids Screen Neg Blood Type Blood Type Recheck 06/14/18 06/14/18 06/14/18 03:30 03:30 03:30 WBC 18.3 H RBC 4.27 Hgb 12.5 Hct 37.0 MCV 86.5 MCH 29.3 MCHC 33.8 RDW 14.0 Plt Count 124 L MPV 10.4 Neut % (Auto) 81.2 H Lymph % (Auto) 10.6 [place] % (Auto) 6.3 Eos % (Auto) 1.4 Baso % (Auto) 0.5 Neut # (Auto) 14.8 H Lymph # (Auto) 1.9 [place] # (Auto) 1.2 H Eos # (Auto) 0.3 Baso # (Auto) 0.1 WBC Differential . Differential Comment Auto diff final Sodium 140 Potassium 3.7 Chloride 104 Carbon Dioxide 23.1 Anion Gap 13 BUN 9 Creatinine 0.59 Estimated GFR Greater than 89 Random Glucose 76 Calcium 8.1 L Total Bilirubin 0.4 AST 13 L ALT 14 Alkaline Phosphatase 236 H Total Protein 6.9 Albumin 3.0 L Urine Color Urine Clarity Urine pH Ur Specific [place] Urine Protein Urine Glucose (UA) Urine Ketones Urine Occult Blood Urine Nitrate Urine Bilirubin Urine Urobilinogen Ur Leukocyte Esterase Urine RBC Urine WBC Ur Squamous Epith Cells Urine Bacteria Urine Mucus Micro UA Comment Ur Microscopic Review Urine Culture Comments Clue Cells (Wet Prep) Trichomonas (Wet Prep) Yeast (Wet Prep) Urine Opiates Screen Ur Barbiturates Screen Ur Amphetamine Screen U Benzodiazepines Scrn Urine Cocaine Screen U Cannabinoids Screen Blood Type O Positive Blood Type Recheck Not needed Assessment and Plan - Assessment (1) 39 weeks gestation of Code(s): Z3A.39 - 39 weeks gestation of Status: Acute (2) Desires (vaginal after ) trial Code(s): O34.219 - Maternal care for unspecified type scar from previous delivery Status: Acute (3) Trichomonas exposure Code(s): Z20.2 - Contact with and (suspected) exposure to infections with a predominantly sexual mode of transmission Status: Acute
[2018-06-14] MEDS ORDERED: Zolpidem Tartrate 5 MG Tablet PO PRN (11:45)
[2018-06-14] MEDS ORDERED: Acetaminophen 325 MG Tablet PO PRN (11:45)
[2018-06-14] MEDS ORDERED: Witch Hazel 50%/Glyderin 12.5% 40 Pad Jar RECTAL PRN (11:45)
[2018-06-14] MEDS ORDERED: Benzocaine 20% Top Spray 60 ML Can TOPICAL PRN (11:45)
[2018-06-14] MEDS ORDERED: Oxytocin 30 Units/500ml Premix 30 UNITS/500 ML BAG IV.CONT PRN (11:45)
[2018-06-14] MEDS ORDERED: Bisacodyl 10 MG Supp RECTAL PRN (11:45)
--- NOTE | 2018-06-14 11:48 | P.PN ---
Subjective Interval history: Delivery Note Patient rapidly progressed to C/C/0 after epidural and commenced spontaneous maternal expulsive efforts with good descent and overall reassuring heart rate. The head delivered spontaneously and atraumatically with spontaneous and atraumatic delivery of the anterior shoulder and remainder of . The was placed on the maternal abdomen and was vigorous with stimulation. Per nursery, stable so cord clamp delayed for 45 seconds. A segment of cord was obtained for cord pH and cord blood obtained for nursery. The placenta was delivered spontaneously and no vaginal or perineal lacerations were noted. EBL 150cc. At 5-6 minutes of life began to need assistance with further transitioning so was moved to warmer and given PPD by the respiratory therapist. After some PPD, the appeared to improve transitioning. Apgars 8/7/9, cord pH 7.139. Physical Exam Vital signs: Vital Signs 06/14/18 02:59 06/14/18 03:00 06/14/18 03:01 Temperature 98.0 F Pulse Rate 87 Respiratory Rate 18 Blood Pressure 159/78 H 06/14/18 03:41 06/14/18 04:07 06/14/18 04:21 Temperature Pulse Rate 86 83 Respiratory Rate 18 18 Blood Pressure 136/84 141/71 H 06/14/18 04:57 06/14/18 05:01 06/14/18 06:18 Temperature Pulse Rate 85 87 Respiratory Rate 18 20 Blood Pressure 151/92 H 162/85 H 06/14/18 06:21 06/14/18 07:02 06/14/18 07:31 Temperature 98.1 F Pulse Rate 85 85 86 Respiratory Rate 18 Blood Pressure 145/80 H 151/81 H 125/88 06/14/18 07:45 06/14/18 08:00 06/14/18 08:05 Temperature Pulse Rate 91 H Respiratory Rate 16 18 16 Blood Pressure 156/87 H 06/14/18 08:19 06/14/18 08:30 06/14/18 08:40 Temperature Pulse Rate 92 H 88 94 H Respiratory Rate Blood Pressure 154/82 H 147/82 H 06/14/18 08:51 06/14/18 08:55 06/14/18 09:00 Temperature 98.8 F Pulse Rate 92 H 93 H 88 Respiratory Rate 18 Blood Pressure 144/79 H 141/90 H 06/14/18 09:10 09/25/18 09:30 06/14/18 09:40 Temperature Pulse Rate 101 H 90 94 H Respiratory Rate Blood Pressure 138/86 06/14/18 09:55 06/14/18 10:35 Temperature Pulse Rate 103 H 92 H Respiratory Rate Blood Pressure 141/97 H 158/82 H Intake & Output 06/13/18 06/14/18 06/14/18 18:59 06:59 18:59 Weight 89.358 kg Results - Labs CBC & Chem 7: 06/14/18 03:30 06/14/18 03:30 Laboratory Results - last 24 hr 06/14/18 06/14/18 06/14/18 03:00 03:00 03:15 WBC RBC Hgb Hct MCV MCH MCHC RDW Plt Count MPV Neut % (Auto) Lymph % (Auto) [place] % (Auto) Eos % (Auto) Baso % (Auto) Neut # (Auto) Lymph # (Auto) [place] # (Auto) Eos # (Auto) Baso # (Auto) WBC Differential Differential Comment Sodium Potassium Chloride Carbon Dioxide Anion Gap BUN Creatinine Estimated GFR Random Glucose Calcium Total Bilirubin AST ALT Alkaline Phosphatase Total Protein Albumin Urine Color Yellow Urine Clarity Hazy H Urine pH 6.0 Ur Specific [place] 1.012 Urine Protein Negative Urine Glucose (UA) Negative Urine Ketones Negative Urine Occult Blood Small H Urine Nitrate Negative Urine Bilirubin Negative Urine Urobilinogen Less than 2 Ur Leukocyte Esterase Trace H Urine RBC 2 Urine WBC 5 Ur Squamous Epith Cells 6 Urine Bacteria Rare H Urine Mucus Few H Micro UA Comment Culture not ind Ur Microscopic Review Not Reportable Urine Culture Comments Culture not ind Clue Cells (Wet Prep) None seen Trichomonas (Wet Prep) None seen Yeast (Wet Prep) None seen Urine Opiates Screen Neg Ur Barbiturates Screen Neg Ur Amphetamine Screen Neg U Benzodiazepines Scrn Neg Urine Cocaine Screen Neg U Cannabinoids Screen Neg Blood Type Blood Type Recheck 06/14/18 06/14/18 06/14/18 03:30 03:30 03:30 WBC 18.3 H RBC 4.27 Hgb 12.5 Hct 37.0 MCV 86.5 MCH 29.3 MCHC 33.8 RDW 14.0 Plt Count 124 L MPV 10.4 Neut % (Auto) 81.2 H Lymph % (Auto) 10.6 [place] % (Auto) 6.3 Eos % (Auto) 1.4 Baso % (Auto) 0.5 Neut # (Auto) 14.8 H Lymph # (Auto) 1.9 [place] # (Auto) 1.2 H Eos # (Auto) 0.3 Baso # (Auto) 0.1 WBC Differential . Differential Comment Auto diff final Sodium 140 Potassium 3.7 Chloride 104 Carbon Dioxide 23.1 Anion Gap 13 BUN 9 Creatinine 0.59 Estimated GFR Greater than 89 Random Glucose 76 Calcium 8.1 L Total Bilirubin 0.4 AST 13 L ALT 14 Alkaline Phosphatase 236 H Total Protein 6.9 Albumin 3.0 L Urine Color Urine Clarity Urine pH Ur Specific [place] Urine Protein Urine Glucose (UA) Urine Ketones Urine Occult Blood Urine Nitrate Urine Bilirubin Urine Urobilinogen Ur Leukocyte Esterase Urine RBC Urine WBC Ur Squamous Epith Cells Urine Bacteria Urine Mucus Micro UA Comment Ur Microscopic Review Urine Culture Comments Clue Cells (Wet Prep) Trichomonas (Wet Prep) Yeast (Wet Prep) Urine Opiates Screen Ur Barbiturates Screen Ur Amphetamine Screen U Benzodiazepines Scrn Urine Cocaine Screen U Cannabinoids Screen Blood Type O Positive Blood Type Recheck Not needed Assessment and Plan - Assessment (1) 39 weeks gestation of Code(s): Z3A.39 - 39 weeks gestation of Status: Acute (2) Desires (vaginal after ) trial Code(s): O34.219 - Maternal care for unspecified type scar from previous delivery Status: Acute (3) Trichomonas exposure Code(s): Z20.2 - Contact with and (suspected) exposure to infections with a predominantly sexual mode of transmission Status: Acute
[2018-06-14 12:03] LABS: Cord Arterial Blood HCO3 24.2
--- NOTE | 2018-06-14 12:18 | P.OBDELI ---
Weeks Gestation: 39 Anesthesia: Epidural Episiotomy: none Vaginal Delivery: Normal Presentation: Occiput anterior Nuchal Cord: None Delayed Cord Clamping (45 sec): Yes Placenta: Spontaneous delivery Laceration: None Estimated blood loss (mL): 150 : Male Additional Information: Apgars 8/7/9 with need for additional transitioning support at 5-6 minutes of life, respiratory therapy present and assisted with PPD with appropriate transitioning thereafter.
[2018-06-14] MEDS ORDERED: fentaNYL Citrate Inj 100 MCG/2 ML Ampul EPIDURAL ONE (13:49)
[2018-06-14] MEDS ORDERED: fentaNYL 2MCG-Bupiv 0.125% Epi 150 ML EPIDURAL PRN (13:49)
[2018-06-14] MEDS ORDERED: Diphtheria/Tetanus/Pertussis Vaccine Inj 0.5 ML Syringe IM ONE (16:00)
[2018-06-14] MEDS ORDERED: Measles/Mumps/Rubella Vaccine Inj 0.5 ML Vial SQ ONE (16:00)
[2018-06-14] MEDS: Senna/Docusate Sodium 8.6/50 MG Tablet PO SCH (21:14)
[2018-06-15 01:24] VITALS: RESP 16
[2018-06-15 08:06] VITALS: BP 137/82; PULSE 83; TEMP 98.1
[2018-06-15] MEDS: Senna/Docusate Sodium 8.6/50 MG Tablet PO SCH (08:25)
--- NOTE | 2018-06-15 09:45 | P.PNOB ---
Subjective Post day: 1 Interval history: Patient is a 32-year-old G 6 P 3 delivered at term. Patient is day 1 after uncomplicated vaginal delivery. Patient's pain is well-controlled. Patient reports eating and drinking without any nausea or vomiting. Patient reports minimal bleeding. Patient has passed gas but no bowel movements. Patient is walking without lower extremity pain or shortness of breath. Patient reports desire for contraception and breast-feeding. Objective Vital Signs/I&O: Vital Signs 06/14/18 09:55 06/14/18 10:35 06/14/18 10:40 Temperature Pulse Rate 103 H 92 H 114 H Respiratory Rate Blood Pressure 141/97 H 158/82 H 147/124 H 06/14/18 11:50 06/14/18 11:51 06/14/18 11:56 Temperature 97.7 F Pulse Rate 96 H 110 H Respiratory Rate 16 Blood Pressure 167/105 H 126/89 06/14/18 12:00 06/14/18 12:10 06/14/18 12:15 Temperature Pulse Rate 107 H 103 H 106 H Respiratory Rate Blood Pressure 128/79 129/73 06/14/18 12:25 06/14/18 12:42 06/14/18 12:54 Temperature Pulse Rate 110 H 109 H Respiratory Rate 14 16 Blood Pressure 122/58 L 06/14/18 12:56 06/14/18 13:36 06/14/18 13:37 Temperature 98.0 F Pulse Rate 92 H 95 H Respiratory Rate 20 Blood Pressure 130/75 150/90 H 06/14/18 15:15 06/14/18 18:43 06/14/18 18:52 Temperature 98.0 F Pulse Rate 100 H 100 H Respiratory Rate 20 Blood Pressure 146/80 H 146/80 H 06/14/18 20:44 06/15/18 08:00 Temperature 97.9 F 98.1 F Pulse Rate 86 83 Respiratory Rate 16 16 Blood Pressure 139/83 137/82 Result Diagrams: 06/14/18 03:30 06/14/18 03:30 Objective Remarks: GENERAL: Well-nourished, well-developed patient. CARDIOVASCULAR: Regular rate and rhythm without murmurs, gallops, or rubs. RESPIRATORY: Breath sounds equal bilaterally. No accessory muscle use. ABDOMEN/GI: Abdomen soft, non-tender. Fundus: Firm, non-tender at umbilicus. GENITOURINARY: Light to moderate bleeding. EXTREMITIES: No cyanosis or edema, non-tender, without signs of DVT. Medications and IVs: Active Medications Acetaminophen (Tylenol) 650 mg PO Q4H PRN PRN Reason: PAIN SCALE 1 TO 2 Al Hydroxide/Mg Hydroxide (Milk Of Magnesia Liq) 30 ml PO Q12H PRN PRN Reason: Mild Constipation Benzocaine (Americaine 20% [place]) 1 spray TOPICAL Q4H PRN PRN Reason: For Perineum Discomfort Bisacodyl (Dulcolax Supp) 10 mg RECTAL DAILY PRN PRN Reason: SEVERE CONSITIPATION Citric Acid/Sodium Citrate (Sodium Citrate/Citric Acid Liq) 30 ml PO [employer] [facility] Stop: 06/18/18 03:29 Ephedrine Sulfate (Ephedrine/Ns Syringe) 10 mg IV.PUSH UNSCH PRN PRN Reason: SEE LABEL COMMENTS Stop: 06/15/18 13:49 Fentanyl Citrate (Fentanyl Inj) 50 mcg IV.PUSH Q1H PRN PRN Reason: Pain Scale 3 - 5 Fentanyl Citrate (Fentanyl Inj) 100 mcg IV.PUSH Q1H PRN PRN Reason: PAIN SCALE 6 TO 10 Last Admin: 06/14/18 08:58 Dose: 100 mcg Lactated Ringer's (Lr 1000 Ml Inj) 1,000 mls @ 125 mls/hr IV.CONT .Q8H [facility] Last Admin: 06/15/18 06:36 Dose: Not Given Lactated Ringer's (Lr 1000 Ml Inj) 1,000 mls @ 3,000 mls/hr IV.SIG UNSCH PRN PRN Reason: compromise or epidural Sodium Chloride (Ns Inj) 1,000 mls @ 100 mls/hr IV.CONT .Q10H PRN PRN Reason: SEE LABEL COMMENTS Sodium Chloride (Ns Inj) 500 mls @ 1,000 mls/hr IV.SIG UNSCH PRN PRN Reason: SEE LABEL COMMENTS Oxytocin (Pitocin 30 Units/Ns 500 Ml Premix) 30 units in 500 mls @ 1 mls/hr IV.SIG TITRATE PRN; Protocol PRN Reason: For induction of labor Last Admin: 06/14/18 07:44 Dose: 1 milliunit/min, 1 mls/hr Oxytocin (Pitocin 30 Units/Ns 500 Ml Premix) 30 units in 500 mls @ 100 mls/hr IV.CONT UNSCH PRN PRN Reason: Heavy bleeding Fentanyl/Bupivacaine/Sodium Chlor (Fentanyl 2 Mcg-Bupiv 0.125% Epi) 150 mls @ 11 mls/hr EPIDURAL PRN PRN PRN Reason: for Labor Pain Ibuprofen (Motrin) 800 mg PO Q8H PRN PRN Reason: For Cramping Last Admin: 06/15/18 08:25 Dose: 800 mg Lactulose (Lactulose Liq) 30 ml PO DAILY PRN PRN Reason: SEVERE CONSITIPATION Lidocaine HCl (Xylocaine 1% Inj) 0.1 ml I-DERMAL PRN PRN PRN Reason: For IV start Stop: 06/17/18 03:17 Lidocaine HCl (Xylocaine 1% Inj) 10 ml INFILTRATN PRN PRN PRN Reason: For episiotomy repair Stop: 06/16/18 03:17 Mineral Oil (Muri-Lube Oil) 10 ml TOPICAL PRN PRN PRN Reason: PRN perineal massage Miscellaneous Information (Misc Information) 1 each OTHER UNSCH PRN PRN Reason: SEE LABEL COMMENTS Stop: 06/15/18 13:49 Miscellaneous Information (Misc Information) 1 each OTHER UNSCH PRN PRN Reason: SEE LABEL COMMENTS Stop: 06/15/18 13:49 Naloxone HCl (Narcan Inj) 0.1 mg IV.PUSH Q2M PRN PRN Reason: for opiate reversal Naloxone HCl (Narcan Inj) 0.1 mg IV.PUSH Q2M PRN PRN Reason: for opiate reversal Ondansetron HCl (Zofran Odt) 4 mg PO Q6H PRN PRN Reason: NAUSEA OR VOMITING Oxycodone/Acetaminophen (Percocet 5/325 Mg) 1 tab PO Q4H PRN PRN Reason: PAIN SCALE 4 TO 6 MODERATE Oxycodone/Acetaminophen (Percocet 5/325 Mg) 2 tab PO Q4H PRN PRN Reason: PAIN SCALE 7 TO 10 SEVERE Senna/Docusate Sodium (Shruti-Colace) 1 tab PO BID EMRE Last Admin: 06/15/18 08:25 Dose: 1 tab Sennosides (Senokot) 17.2 mg PO Q12H PRN PRN Reason: Moderate Constipation Sodium Chloride (Ns Flush) 2 ml IV.FLUSH BID EMRE Last Admin: 06/15/18 08:25 Dose: Not Given Sodium Chloride (Ns Flush) 2 ml IV.FLUSH PRN PRN PRN Reason: FLUSH AFTER USING IV ACCESS Witch Aparna/Glycerin (Tucks Pads) 1 applicatio RECTAL QID PRN PRN Reason: HEMORRHOIDS Zolpidem Tartrate (Ambien) 5 mg PO HS PRN PRN Reason: SLEEP Assessment and Plan - Diagnosis (1) Vaginal delivery Code(s): O80 - Encounter for full-term uncomplicated delivery Status: Acute Plan: Patient was counseled to do 6 weeks of pelvic rest. Patient was counseled to follow up in 6 weeks. Patient requested follow-up and contraception. --AF VSS --Continue routine care --Motrin and Percocet when necessary for pain --Encourage OOB --Pelvic rest for 6 weeks will need follow-up appointment at that time. --Contraception: Considering options, will continue to reinforce tomorrow --Anticipate discharge tomorrow
== END 2018-06-15 14:24 | disposition home or self-care (01) ==
LOC: HOBED 02:30 → H2E 03:04 → H1EA 13:20
PROVIDERS: ADMIT Obstetrics & Gynecology; ATTEND Obstetrics & Gynecology